=== PATIENT | male | born 1935 | race African-American/Black ===

== ENCOUNTER 2018-07-12 22:42 | Emergency (ER) | payer BC, MEDICARE ==
[~2018-07-12] VITALS: Ht 177.8 cm; Wt 86.0 kg
[~2018-07-12 22:42] MED LIST: AMLO10TA80 PO; ASPI-1159 PO; BRIM10DR2 TOP; KETO5DRO37 LEFTEYE; LEVO50TA8 PO; LOSA100T14 PO; PREDG05 OP
[2018-07-13] MEDS ORDERED: ONDANSETRON HCL 4MG/2ML INJ IV STA (00:06)
[2018-07-13] MEDS ORDERED: MORPHINE SULFATE 4 MG/ML CPJ (NOT FOR IM USE) IV STA (00:06)
[2018-07-13] MEDS ORDERED: ENALAPRIL 2.5MG/2ML VIAL 2ML IV ONE (00:15)
[2018-07-13 00:31] LABS: BASOPHILS % 1.1 % (0.0-2.0); EOSINOPHILS % 3.2 % (0.0-5.0); HEMATOCRIT. 29.9 % (42.0-52.0); HEMOGLOBIN. 9.8 g/dL (14.0-18.0); LYMPHOCYTES % 22.1 % (20.0-50.0); MEAN CORPUSCULAR HEMOGLOBIN 32.2 pg (28.0-32.0); MEAN CORPUSCULAR VOLUME 98.4 fL (80.0-94.0); MEAN PLATELET VOLUME 9.7 fl (7.4-10.4); MONOCYTES % 12.6 % (2.0-8.0); PLATELET 133 x1000/uL (130-400); RED BLOOD CELL COUNT 3.04 mill/uL (4.7-6.1); RED CELL DISTRIBUTION WIDTH 14.4 % (11.6-14.6)
[2018-07-13 00:39] LABS: CHLORIDE 112 mEq/L (98-107)
[2018-07-13] MEDS ORDERED: CLONIDINE 0.2MG TABLET PO ONE (03:15)
[2018-07-13] MEDS ORDERED: HYDROCODONE/ACETAMINOPHEN 5/325MG TABLET PO ONE (04:45)
[2018-07-13 05:02] VITALS: BP 153/86
== END 2018-07-13 05:04 | disposition home or self-care (01) ==
LOC: ER 22:42
DX: I16.0 Hypertensive urgency (principal); I10 Essential (primary) hypertension; E11.9 Type 2 diabetes mellitus without complications; R51 Headache; R42 Dizziness and giddiness; R06.02 Shortness of breath; Z90.49 Acquired absence of other specified parts of digestive tract; Z79.82 Long term (current) use of aspirin; Z79.899 Other long term (current) drug therapy
CPT/HCPCS: 36415; 70450; 71045; 80053; 82962; 83880; 84484; 85025; 93005; 96374; 96375; 99291; J2270; J2405; J3490

== ENCOUNTER 2018-07-13 10:39 | Inpatient (IN) | payer MEDICARE, OTHER ==
[~2018-07-13] VITALS: Ht 188 cm; Wt 102.1 kg
[2018-07-13] MEDS ORDERED: TRAMADOL 50MG TABLET PO ONE (11:00)
[2018-07-13] MEDS ORDERED: KETOROLAC 15MG/ML VIAL IV ONE (11:00)
[2018-07-13 11:51] LABS: HEMATOCRIT. 31.1 % (42.0-52.0); HEMOGLOBIN. 10.3 g/dL (14.0-18.0); MEAN CORPUSCULAR HEMOGLOBIN 32.7 pg (28.0-32.0); MEAN CORPUSCULAR VOLUME 98.7 fL (80.0-94.0); MEAN PLATELET VOLUME 9.3 fl (7.4-10.4); PLATELET 110 x1000/uL (130-400); RED BLOOD CELL COUNT 3.15 mill/uL (4.7-6.1); RED CELL DISTRIBUTION WIDTH 14.5 % (11.6-14.6)
[2018-07-13] MEDS ORDERED: MIDAZOLAM HCL 2 MG/2 ML VIAL IV ONE (12:00)
[2018-07-13] MEDS ORDERED: LIDOCAINE HCL/PF 1% 10 MG/ML 5ML VIAL ONE (12:37)
[2018-07-13 13:16] LABS: NUCLEATED RED BLOOD CELLS 1 /100 WBC
[2018-07-13 13:18] LABS: PLATELET ESTIMATE SLIGHTLY DECREASED
[2018-07-13] MEDS ORDERED: MORPHINE SULFATE 4 MG/ML CPJ (NOT FOR IM USE) IV ONE (15:00)
[2018-07-13] MEDS ORDERED: PANTOPRAZOLE SODIUM 40 MG/VIAL IV ONE (15:15)
[2018-07-13 16:20] VITALS: BP 127/81
[2018-07-13 16:57] LABS: GLUCOSE CSF 112 mg/dL (41-75)
[2018-07-13] MEDS ORDERED: AMPICILLIN 2000MG in SODIUM CHLORIDE 0.9% 100ML IV SCH (17:30)
[2018-07-13 18:00] VITALS: BP 95/58
[2018-07-13] MEDS ORDERED: CEFTRIAXONE 2 G in DEXT 5% WATER 100 ML IV SCH (18:00)
[2018-07-13] MEDS ORDERED: VANCOMYCIN 1500MG in DEXTROSE 5% WATER 250ML IV NR (19:00)
[2018-07-13] MEDS ORDERED: DEXTROSE 50% WATER 50ML SYRINGE IV PRN (19:15)
[2018-07-13] MEDS: SODIUM CHLORIDE 0.45% 1,000 ML IV SCH (19:47)
[2018-07-13 20:00] VITALS: BP 92/58
[2018-07-13] MEDS: INSULIN LISPRO 100 UNITS/ML SUBCUT SCH (21:00)
[2018-07-13] MEDS: BLOOD SUGAR DIAGNOSTIC STRIP TEST SCH (21:43)
[2018-07-13 22:00] VITALS: BP 98/57
[2018-07-13] MEDS: OSELTAMIVIR 30MG CAPSULE PO SCH (23:22)
[2018-07-14] VITALS (10 sets, daily range): BP systolic 88–123; BP diastolic 54–76
[2018-07-14] MEDS: ACETAMINOPHEN 325MG TABLET PO PRN ×2 (02:46→08:15)
[2018-07-14 03:45] LABS: CLARITY URINE CLOUDY (CLEAR); COLOR URINE YELLOW (YELLOW); KETONES URINE NEGATIVE (NEGATIVE); LEUKOCYTE ESTERASE URINE NEGATIVE (NEGATIVE); NITRITE URINE POSITIVE (NEGATIVE); OCCULT BLOOD URINE 1+ (NEGATIVE); PROTEIN URINE 3+ (NEGATIVE); SPECIFIC GRAVITY URINE 1.018 (1.005-1.030); UROBILINOGEN URINE 0.2 E.U./dL (0.2-1.0)
[2018-07-14] MEDS: SODIUM CHLORIDE 0.45% 1,000 ML IV SCH ×2 (05:09→19:55)
[2018-07-14 06:35] LABS: HEMATOCRIT. 26.3 % (42.0-52.0); HEMOGLOBIN. 8.7 g/dL (14.0-18.0); MEAN CORPUSCULAR VOLUME 99.4 fL (80.0-94.0); MEAN PLATELET VOLUME 10.8 fl (7.4-10.4); PLATELET 85 x1000/uL (130-400); RED BLOOD CELL COUNT 2.65 mill/uL (4.7-6.1)
[2018-07-14] MEDS: INSULIN LISPRO 100 UNITS/ML SUBCUT SCH ×4 (08:00→21:00)
[2018-07-14] MEDS: BLOOD SUGAR DIAGNOSTIC STRIP TEST SCH ×4 (08:03→21:13)
[2018-07-14] MEDS: OSELTAMIVIR 30MG CAPSULE PO SCH ×2 (08:13→21:13)
[2018-07-14] MEDS ORDERED: HYDROCODONE/ACETAMINOPHEN 5/325MG TABLET PO PRN (10:00)
[2018-07-14] MEDS ORDERED: SODIUM POLYSTYRENE SULFONATE 15 G/60 ML BOT PO SCH (10:15)
[2018-07-14] MEDS ORDERED: PIPERACILLIN/TAZOBACTAM 2.25 G in DEXTROSE 5% WATER 50 ML IV SCH (15:00)
[2018-07-14] MEDS: PIPERACILLIN/TAZ 2.25G PREMIX 50 ML IV SCH ×2 (15:43→21:13)
[2018-07-14 15:49] LABS: INR 1.2; PROTHROMBIN TIME 12.2 sec (9.1-11.1)
[2018-07-14] MEDS: CYCLOBENZAPRINE 10MG TABLET PO SCH (17:28)
[2018-07-14] MEDS ORDERED: SODIUM POLYSTYRENE SULFONATE 15 G/60 ML BOT PO NR (18:30)
[2018-07-14 19:13] LABS: PLATELET ESTIMATE DECREASED
[2018-07-14] MEDS ORDERED: VANCOMYCIN 1 G PREMIX 200 ML IV SCH (20:00)
[2018-07-14] MEDS: TRAMADOL 50MG TABLET PO PRN (23:02)
[2018-07-15] VITALS (16 sets, daily range): BP systolic 87–138; BP diastolic 37–87
[2018-07-15] MEDS: MORPHINE SULFATE 4 MG/ML CPJ (NOT FOR IM USE) IV PRN ×3 (00:18→22:47)
[2018-07-15] MEDS: SODIUM CHLORIDE 0.45% 1,000 ML IV SCH ×3 (00:21→21:08)
[2018-07-15] MEDS: PIPERACILLIN/TAZ 2.25G PREMIX 50 ML IV SCH ×2 (05:25→14:11)
[2018-07-15 07:20] LABS: HEMATOCRIT. 25.8 % (42.0-52.0); HEMOGLOBIN. 8.6 g/dL (14.0-18.0); MEAN CORPUSCULAR HEMOGLOBIN 32.7 pg (28.0-32.0); MEAN CORPUSCULAR VOLUME 98.2 fL (80.0-94.0); MEAN PLATELET VOLUME 11.1 fl (7.4-10.4); PLATELET 73 x1000/uL (130-400); RED BLOOD CELL COUNT 2.62 mill/uL (4.7-6.1); RED CELL DISTRIBUTION WIDTH 14.8 % (11.6-14.6)
[2018-07-15] MEDS ORDERED: LIDOCAINE HCL 1% 20ML VIAL (Pyxis) INJ ONE (07:36)
[2018-07-15] MEDS: BLOOD SUGAR DIAGNOSTIC STRIP TEST SCH ×4 (07:47→21:08)
[2018-07-15] MEDS: INSULIN LISPRO 100 UNITS/ML SUBCUT SCH ×4 (07:49→21:00)
[2018-07-15] MEDS: CYCLOBENZAPRINE 10MG TABLET PO SCH ×2 (10:08→17:04)
[2018-07-15] MEDS: OSELTAMIVIR 30MG CAPSULE PO SCH ×2 (10:08→21:08)
[2018-07-15 12:14] LABS: PLATELET ESTIMATE DECREASED
[2018-07-15] MEDS: ENOXAPARIN 30MG/0.3ML SYR SUBCUT SCH (15:51)
[2018-07-15] MEDS: FOLIC ACID/VITAMIN B COMP W-C TABLET PO SCH (15:52)
[2018-07-15] MEDS ORDERED: DIATR MEGLU/DIATRIZOATE SOLN 30ML PO SCH (16:30)
[2018-07-15] MEDS ORDERED: SODIUM CHLORIDE 0.9% 250 ML IV ONE (17:00)
[2018-07-15] MEDS: CEFTRIAXONE 1 G PREMIX 50 ML IV SCH (18:55)
[2018-07-16] VITALS (13 sets, daily range): BP systolic 110–153; BP diastolic 56–117
[2018-07-16 07:06] LABS: HEMATOCRIT. 26.1 % (42.0-52.0); MEAN CORPUSCULAR HEMOGLOBIN 33.2 pg (28.0-32.0); MEAN CORPUSCULAR VOLUME 96.2 fL (80.0-94.0); MEAN PLATELET VOLUME 10.7 fl (7.4-10.4); PLATELET 84 x1000/uL (130-400); RED BLOOD CELL COUNT 2.72 mill/uL (4.7-6.1); RED CELL DISTRIBUTION WIDTH 14.4 % (11.6-14.6)
[2018-07-16] MEDS: INSULIN LISPRO 100 UNITS/ML SUBCUT SCH ×4 (08:00→21:00)
[2018-07-16 08:06] LABS: PHOSPHORUS 4.9 mg/dL (2.5-4.9)
[2018-07-16] MEDS: BLOOD SUGAR DIAGNOSTIC STRIP TEST SCH ×4 (08:21→21:21)
[2018-07-16] MEDS: FOLIC ACID/VITAMIN B COMP W-C TABLET PO SCH (08:36)
[2018-07-16] MEDS: CYCLOBENZAPRINE 10MG TABLET PO SCH ×2 (08:36→16:33)
[2018-07-16] MEDS: CEFTRIAXONE 1 G PREMIX 50 ML IV SCH (08:36)
[2018-07-16] MEDS: OSELTAMIVIR 30MG CAPSULE PO SCH (08:37)
[2018-07-16 09:11] LABS: PLATELET ESTIMATE DECREASED
[2018-07-16] MEDS ORDERED: VERAPAMIL HCL 2.5 MG/1 ML 2ML VIAL IV NR (09:30)
[2018-07-16] MEDS: MORPHINE SULFATE 4 MG/ML CPJ (NOT FOR IM USE) IV PRN ×3 (09:32→22:22)
[2018-07-16] MEDS ORDERED: VERAPAMIL HCL 2.5 MG/1 ML 2ML VIAL IV PRN (09:45)
[2018-07-16] MEDS: DILTIAZEM HCL 60MG TABLET PO SCH ×3 (09:51→20:00)
[2018-07-16 10:11] LABS: BG BASE EXCESS -5.9 mmol/L (-2.0-2.0); BG CARBOXYHEMOGLOBIN 0.6 % (0.5-1.5); BG DEOXYHEMOGLOBIN 7.4 % (0.0-5.0); BG HCO3 ACT 18.2 mmol/L (22.0-26.0); BG METHEMOGLOBIN 0.2 % (0.0-1.5); BG OXYGEN SATURATION 92.5 % (92.0-98.5); BG OXYHEMOGLOBIN 91.8 % (94.0-97.0); BG PCO2 31.2 mmHg (35.0-45.0); BG PH 7.384 (7.350-7.450); BG PO2 78.6 mmHg (75.0-100.0); BG SAMPLE SITE RIGHT RADIAL; BG TOTAL HEMOGLOBIN 10.6 g/dL (12.0-18.0); BG VENT MODE NASAL CANNULA
[2018-07-16] MEDS ORDERED: DIGOXIN 500MCG/2ML AMP IV NR (10:45)
[2018-07-16 11:12] LABS: HEPATITIS B SURFACE ANTIGEN NEGATIVE
[2018-07-16] MEDS ORDERED: HEPARIN SODIUM 1,000 UNIT/1ML VIAL IV NR (13:00)
[2018-07-16] MEDS: ENOXAPARIN 30MG/0.3ML SYR SUBCUT SCH (16:21)
[2018-07-16] MEDS: METRONIDAZOLE 250MG TABLET PO SCH (18:32)
[2018-07-16] MEDS: SODIUM CHLORIDE 0.45% 1,000 ML IV SCH (18:39)
[2018-07-16] MEDS: TRAMADOL 50MG TABLET PO PRN (20:05)
[2018-07-16] MEDS ORDERED: LORAZEPAM 1MG TABLET PO SCH (20:30)
[2018-07-16] MEDS: EPOETIN ALFA 10000UNITS/ML VIAL SUBCUT SCH (21:21)
[2018-07-17] VITALS (11 sets, daily range): BP systolic 128–154; BP diastolic 55–92
[2018-07-17] MEDS: METRONIDAZOLE 250MG TABLET PO SCH ×4 (05:38→18:56)
[2018-07-17] MEDS: DILTIAZEM HCL 60MG TABLET PO SCH ×4 (05:40→17:39)
[2018-07-17 06:13] LABS: BASOPHILS % 0.6 % (0.0-2.0); EOSINOPHILS % 1.9 % (0.0-5.0); HEMATOCRIT. 26.8 % (42.0-52.0); HEMOGLOBIN. 9.1 g/dL (14.0-18.0); LYMPHOCYTES % 10.7 % (20.0-50.0); MEAN CORPUSCULAR HEMOGLOBIN 33.1 pg (28.0-32.0); MEAN CORPUSCULAR VOLUME 96.9 fL (80.0-94.0); MEAN PLATELET VOLUME 11.2 fl (7.4-10.4); MONOCYTES % 7.3 % (2.0-8.0); NEUTROPHILS % 79.5 % (40.0-76.0); PLATELET 74 x1000/uL (130-400); RED BLOOD CELL COUNT 2.76 mill/uL (4.7-6.1); RED CELL DISTRIBUTION WIDTH 14.3 % (11.6-14.6)
[2018-07-17] MEDS ORDERED: DIATR MEGLU/DIATRIZOATE SOLN 30ML PO NR (06:15)
[2018-07-17] MEDS: INSULIN LISPRO 100 UNITS/ML SUBCUT SCH ×4 (08:00→21:00)
[2018-07-17] MEDS: CYCLOBENZAPRINE 10MG TABLET PO SCH ×2 (08:12→16:58)
[2018-07-17] MEDS: CEFTRIAXONE 1 G PREMIX 50 ML IV SCH (08:12)
[2018-07-17] MEDS: FOLIC ACID/VITAMIN B COMP W-C TABLET PO SCH (08:12)
[2018-07-17] MEDS: BLOOD SUGAR DIAGNOSTIC STRIP TEST SCH ×4 (08:13→21:00)
[2018-07-17] MEDS: MORPHINE SULFATE 4 MG/ML CPJ (NOT FOR IM USE) IV PRN ×3 (08:43→22:33)
[2018-07-17] MEDS ORDERED: FOLIC ACID/VITAMIN B COMP W-C TABLET PO SCH (09:00)
[2018-07-17] MEDS: TRAMADOL 50MG TABLET PO PRN (09:12)
[2018-07-17] MEDS: LORAZEPAM 1MG TABLET PO PRN (09:29)
[2018-07-17] MEDS: SODIUM CHLORIDE 0.45% 1,000 ML IV SCH (10:16)
[2018-07-17] MEDS: ENOXAPARIN 30MG/0.3ML SYR SUBCUT SCH (14:51)
[2018-07-17] MEDS: ACETAMINOPHEN 325MG TABLET PO PRN (22:33)
[2018-07-18] VITALS (12 sets, daily range): BP systolic 132–168; BP diastolic 71–88
[2018-07-18] MEDS: TRAMADOL 50MG TABLET PO PRN ×4 (00:17→23:58)
[2018-07-18] MEDS: METRONIDAZOLE 250MG TABLET PO SCH ×5 (00:17→23:59)
[2018-07-18] MEDS: DILTIAZEM HCL 60MG TABLET PO SCH ×4 (00:20→18:12)
[2018-07-18] MEDS: SODIUM CHLORIDE 0.45% 1,000 ML IV SCH (02:56)
[2018-07-18 06:37] LABS: BASOPHILS % 0.3 % (0.0-2.0); EOSINOPHILS % 2.6 % (0.0-5.0); HEMATOCRIT. 23.3 % (42.0-52.0); LYMPHOCYTES % 10.5 % (20.0-50.0); MEAN CORPUSCULAR HEMOGLOBIN 33.3 pg (28.0-32.0); MEAN CORPUSCULAR VOLUME 96.9 fL (80.0-94.0); MEAN PLATELET VOLUME 10.7 fl (7.4-10.4); MONOCYTES % 14.9 % (2.0-8.0); NEUTROPHILS % 71.7 % (40.0-76.0); PLATELET 66 x1000/uL (130-400); RED CELL DISTRIBUTION WIDTH 13.8 % (11.6-14.6)
[2018-07-18] MEDS: BLOOD SUGAR DIAGNOSTIC STRIP TEST SCH ×4 (07:52→21:00)
[2018-07-18] MEDS: INSULIN LISPRO 100 UNITS/ML SUBCUT SCH ×4 (07:53→21:00)
[2018-07-18] MEDS: CYCLOBENZAPRINE 10MG TABLET PO SCH ×2 (08:51→18:08)
[2018-07-18] MEDS: FOLIC ACID/VITAMIN B COMP W-C TABLET PO SCH (08:51)
[2018-07-18] MEDS: CEFTRIAXONE 1 G PREMIX 50 ML IV SCH (08:54)
[2018-07-18] MEDS: LORAZEPAM 1MG TABLET PO PRN (15:18)
[2018-07-18] MEDS: ENOXAPARIN 30MG/0.3ML SYR SUBCUT SCH (15:25)
[2018-07-18] MEDS: MORPHINE SULFATE 4 MG/ML CPJ (NOT FOR IM USE) IV PRN (16:39)
[2018-07-18] MEDS ORDERED: MORPHINE SULFATE 4 MG/ML CPJ (NOT FOR IM USE) IV ONE (16:42)
[2018-07-18] MEDS: BENZONATATE 100MG CAPSULE PO SCH (22:06)
[2018-07-18] MEDS: EPOETIN ALFA 10000UNITS/ML VIAL SUBCUT SCH (22:07)
[2018-07-19] VITALS (14 sets, daily range): BP systolic 126–169; BP diastolic 59–92
[2018-07-19] MEDS: IPRATROPIUM/ALBUTEROL 0.5-3(2.5)MG/3ML NEB HHN SCH ×7 (00:31→23:53)
[2018-07-19] MEDS: SODIUM CHLORIDE 0.45% 1,000 ML IV SCH (05:04)
[2018-07-19] MEDS: METRONIDAZOLE 250MG TABLET PO SCH ×4 (05:20→23:34)
[2018-07-19] MEDS: DILTIAZEM HCL 60MG TABLET PO SCH ×5 (05:21→23:34)
[2018-07-19] MEDS: BENZONATATE 100MG CAPSULE PO SCH ×3 (06:47→20:20)
[2018-07-19 07:46] LABS: BASOPHILS % 0.6 % (0.0-2.0); HEMATOCRIT. 23.5 % (42.0-52.0); MEAN CORPUSCULAR HEMOGLOBIN 32.8 pg (28.0-32.0); MEAN CORPUSCULAR VOLUME 96.6 fL (80.0-94.0); MEAN PLATELET VOLUME 10.5 fl (7.4-10.4); MONOCYTES % 10.6 % (2.0-8.0); NEUTROPHILS % 74.8 % (40.0-76.0); PLATELET 62 x1000/uL (130-400); RED BLOOD CELL COUNT 2.44 mill/uL (4.7-6.1); RED CELL DISTRIBUTION WIDTH 13.8 % (11.6-14.6)
[2018-07-19] MEDS: BLOOD SUGAR DIAGNOSTIC STRIP TEST SCH ×4 (07:51→21:00)
[2018-07-19] MEDS: MORPHINE SULFATE 4 MG/ML CPJ (NOT FOR IM USE) IV PRN (07:56)
[2018-07-19] MEDS: INSULIN LISPRO 100 UNITS/ML SUBCUT SCH ×4 (07:56→20:44)
[2018-07-19] MEDS: CEFTRIAXONE 1 G PREMIX 50 ML IV SCH (10:01)
[2018-07-19] MEDS: FOLIC ACID/VITAMIN B COMP W-C TABLET PO SCH (10:01)
[2018-07-19] MEDS: CYCLOBENZAPRINE 10MG TABLET PO SCH ×2 (10:01→16:22)
[2018-07-19] MEDS ORDERED: POTASSIUM CHLORIDE 20MEQ TABLET SR PO NR (10:45)
[2018-07-19] MEDS: ENOXAPARIN 30MG/0.3ML SYR SUBCUT SCH (15:10)
[2018-07-19] MEDS: LORAZEPAM 1MG TABLET PO PRN (20:20)
[2018-07-19] MEDS: TRAMADOL 50MG TABLET PO PRN (20:21)
[2018-07-20] VITALS (12 sets, daily range): BP systolic 127–188; BP diastolic 71–142
[2018-07-20] MEDS: TRAMADOL 50MG TABLET PO PRN ×3 (00:09→12:53)
[2018-07-20] MEDS: IPRATROPIUM/ALBUTEROL 0.5-3(2.5)MG/3ML NEB HHN SCH ×5 (04:20→21:19)
[2018-07-20] MEDS: BENZONATATE 100MG CAPSULE PO SCH ×3 (05:25→20:23)
[2018-07-20] MEDS: METRONIDAZOLE 250MG TABLET PO SCH ×4 (05:25→23:52)
[2018-07-20] MEDS: DILTIAZEM HCL 60MG TABLET PO SCH (05:25)
[2018-07-20] MEDS: BLOOD SUGAR DIAGNOSTIC STRIP TEST SCH ×4 (06:21→20:27)
[2018-07-20 06:42] LABS: HEMATOCRIT. 25.5 % (42.0-52.0); HEMOGLOBIN. 8.5 g/dL (14.0-18.0); MEAN CORPUSCULAR HEMOGLOBIN 32.2 pg (28.0-32.0); MEAN CORPUSCULAR VOLUME 97.3 fL (80.0-94.0); PLATELET 71 x1000/uL (130-400); RED BLOOD CELL COUNT 2.62 mill/uL (4.7-6.1)
[2018-07-20] MEDS: CYCLOBENZAPRINE 10MG TABLET PO SCH ×2 (08:57→16:16)
[2018-07-20] MEDS: CEFTRIAXONE 1 G PREMIX 50 ML IV SCH (08:58)
[2018-07-20] MEDS: FOLIC ACID/VITAMIN B COMP W-C TABLET PO SCH (08:58)
[2018-07-20] MEDS: INSULIN LISPRO 100 UNITS/ML SUBCUT SCH ×4 (08:59→20:43)
[2018-07-20 10:46] LABS: PLATELET ESTIMATE DECREASED
[2018-07-20] MEDS: DILTIAZEM HCL 90MG TABLET PO SCH ×3 (11:19→23:52)
[2018-07-20] MEDS ORDERED: CLONIDINE 0.1MG TABLET PO PRN (17:30)
[2018-07-21] VITALS (18 sets, daily range): BP systolic 131–167; BP diastolic 62–94
[2018-07-21] MEDS: IPRATROPIUM/ALBUTEROL 0.5-3(2.5)MG/3ML NEB HHN SCH ×6 (00:55→20:58)
[2018-07-21] MEDS: BENZONATATE 100MG CAPSULE PO SCH ×3 (04:57→20:50)
[2018-07-21] MEDS: DILTIAZEM HCL 90MG TABLET PO SCH ×4 (05:30→23:18)
[2018-07-21] MEDS: METRONIDAZOLE 250MG TABLET PO SCH ×4 (05:31→23:19)
[2018-07-21] MEDS: BLOOD SUGAR DIAGNOSTIC STRIP TEST SCH ×4 (08:27→20:51)
[2018-07-21] MEDS: INSULIN LISPRO 100 UNITS/ML SUBCUT SCH ×4 (08:35→20:51)
[2018-07-21] MEDS: CEFTRIAXONE 1 G PREMIX 50 ML IV SCH (08:36)
[2018-07-21] MEDS: FOLIC ACID/VITAMIN B COMP W-C TABLET PO SCH (09:00)
[2018-07-21] MEDS: CYCLOBENZAPRINE 10MG TABLET PO SCH ×2 (09:00→17:02)
[2018-07-21] MEDS ORDERED: FENTANYL CITRATE/PF 50MCG/ML 2ML VIAL ONE (10:13)
[2018-07-21] MEDS ORDERED: TETRACAINE/BENZOCAINE/BUTAMBEN 20 GM SPRAY MM ONE (10:14)
[2018-07-21] MEDS ORDERED: MIDAZOLAM HCL 5 MG/5 ML VIAL ONE (10:14)
[2018-07-21] MEDS ORDERED: LIDOCAINE HCL 2% JELLY 5ML ONE (10:14)
[2018-07-21] MEDS ORDERED: EPOETIN ALFA 10000UNITS/ML VIAL SUBCUT SCH (21:00)
[2018-07-21] MEDS: ACETAMINOPHEN 325MG TABLET PO PRN (23:19)
[2018-07-22] VITALS (12 sets, daily range): BP systolic 130–171; BP diastolic 77–110
[2018-07-22] MEDS: TRAMADOL 50MG TABLET PO PRN ×2 (00:48→09:22)
[2018-07-22] MEDS: IPRATROPIUM/ALBUTEROL 0.5-3(2.5)MG/3ML NEB HHN SCH ×6 (01:24→20:57)
[2018-07-22] MEDS: BENZONATATE 100MG CAPSULE PO SCH ×3 (05:26→20:58)
[2018-07-22] MEDS: METRONIDAZOLE 250MG TABLET PO SCH ×3 (05:27→17:37)
[2018-07-22] MEDS: DILTIAZEM HCL 90MG TABLET PO SCH ×3 (05:27→17:37)
[2018-07-22] MEDS: BLOOD SUGAR DIAGNOSTIC STRIP TEST SCH ×4 (07:48→20:58)
[2018-07-22] MEDS: INSULIN LISPRO 100 UNITS/ML SUBCUT SCH ×4 (08:49→21:03)
[2018-07-22] MEDS: CYCLOBENZAPRINE 10MG TABLET PO SCH ×2 (09:02→17:36)
[2018-07-22] MEDS: CEFTRIAXONE 1 G PREMIX 50 ML IV SCH (09:02)
[2018-07-22] MEDS: FOLIC ACID/VITAMIN B COMP W-C TABLET PO SCH (09:02)
[2018-07-22] MEDS: HYDROCODONE/ACETAMINOPHEN 5/325MG TABLET PO PRN (17:45)
[2018-07-22] MEDS: ATORVASTATIN CALCIUM 10MG TABLET PO SCH (20:58)
[2018-07-22] MEDS: HYDRALAZINE HCL 50MG TABLET PO SCH (20:58)
[2018-07-23] VITALS (11 sets, daily range): BP systolic 131–160; BP diastolic 65–88
[2018-07-23] MEDS: IPRATROPIUM/ALBUTEROL 0.5-3(2.5)MG/3ML NEB HHN SCH ×6 (00:33→20:36)
[2018-07-23] MEDS: DILTIAZEM HCL 90MG TABLET PO SCH ×4 (00:40→17:36)
[2018-07-23] MEDS: METRONIDAZOLE 250MG TABLET PO SCH ×4 (00:41→17:36)
[2018-07-23] MEDS: HYDROCODONE/ACETAMINOPHEN 5/325MG TABLET PO PRN ×3 (00:41→16:29)
[2018-07-23] MEDS: BENZONATATE 100MG CAPSULE PO SCH ×3 (05:27→20:48)
[2018-07-23] MEDS: BLOOD SUGAR DIAGNOSTIC STRIP TEST SCH ×4 (07:30→20:48)
[2018-07-23 08:28] LABS: HEMOGLOBIN. 8.6 g/dL (14.0-18.0); MEAN CORPUSCULAR VOLUME 96.5 fL (80.0-94.0); MEAN PLATELET VOLUME 10.2 fl (7.4-10.4); PLATELET 98 x1000/uL (130-400); RED CELL DISTRIBUTION WIDTH 14.4 % (11.6-14.6)
[2018-07-23] MEDS: CYCLOBENZAPRINE 10MG TABLET PO SCH ×2 (10:15→16:27)
[2018-07-23] MEDS: HYDRALAZINE HCL 50MG TABLET PO SCH ×2 (10:15→20:48)
[2018-07-23] MEDS ORDERED: POTASSIUM CHLORIDE 20MEQ TABLET SR PO NR (10:15)
[2018-07-23] MEDS: FOLIC ACID/VITAMIN B COMP W-C TABLET PO SCH (10:15)
[2018-07-23] MEDS: INSULIN LISPRO 100 UNITS/ML SUBCUT SCH ×4 (10:21→20:54)
[2018-07-23 11:53] LABS: NUCLEATED RED BLOOD CELLS 1 /100 WBC
[2018-07-23 11:54] LABS: PLATELET ESTIMATE DECREASED
[2018-07-23] MEDS ORDERED: CEFTRIAXONE 1 G PREMIX 50 ML IV SCH (15:30)
[2018-07-23] MEDS: APIXABAN 2.5 MG TABLET PO SCH (16:29)
[2018-07-23] MEDS: ATORVASTATIN CALCIUM 10MG TABLET PO SCH (20:48)
[2018-07-23] MEDS: TRAMADOL 50MG TABLET PO PRN (20:59)
[2018-07-24] VITALS (11 sets, daily range): BP systolic 131–158; BP diastolic 65–83
[2018-07-24] MEDS: IPRATROPIUM/ALBUTEROL 0.5-3(2.5)MG/3ML NEB HHN SCH ×7 (00:19→23:43)
[2018-07-24] MEDS: DILTIAZEM HCL 90MG TABLET PO SCH ×4 (00:48→18:36)
[2018-07-24] MEDS: HYDROCODONE/ACETAMINOPHEN 5/325MG TABLET PO PRN ×4 (00:48→21:45)
[2018-07-24] MEDS: METRONIDAZOLE 250MG TABLET PO SCH ×4 (00:48→18:36)
[2018-07-24 06:48] LABS: BASOPHILS % 0.3 % (0.0-2.0); EOSINOPHILS % 2.2 % (0.0-5.0); HEMATOCRIT. 25.8 % (42.0-52.0); HEMOGLOBIN. 8.8 g/dL (14.0-18.0); LYMPHOCYTES % 9.4 % (20.0-50.0); MEAN CORPUSCULAR HEMOGLOBIN 32.9 pg (28.0-32.0); MEAN CORPUSCULAR VOLUME 96.5 fL (80.0-94.0); MEAN PLATELET VOLUME 10.5 fl (7.4-10.4); MONOCYTES % 7.4 % (2.0-8.0); NEUTROPHILS % 80.7 % (40.0-76.0); PLATELET 97 x1000/uL (130-400); RED BLOOD CELL COUNT 2.67 mill/uL (4.7-6.1); RED CELL DISTRIBUTION WIDTH 14.2 % (11.6-14.6)
[2018-07-24] MEDS: BENZONATATE 100MG CAPSULE PO SCH ×3 (07:03→21:40)
[2018-07-24] MEDS: BLOOD SUGAR DIAGNOSTIC STRIP TEST SCH ×4 (07:33→21:00)
[2018-07-24] MEDS: FOLIC ACID/VITAMIN B COMP W-C TABLET PO SCH (09:12)
[2018-07-24] MEDS: APIXABAN 2.5 MG TABLET PO SCH ×2 (09:12→16:39)
[2018-07-24] MEDS: CYCLOBENZAPRINE 10MG TABLET PO SCH ×2 (09:12→16:40)
[2018-07-24] MEDS: HYDRALAZINE HCL 50MG TABLET PO SCH ×3 (09:13→21:45)
[2018-07-24] MEDS: INSULIN LISPRO 100 UNITS/ML SUBCUT SCH ×4 (09:14→22:05)
[2018-07-24] MEDS ORDERED: POTASSIUM CHLORIDE 20MEQ TABLET SR PO SCH (10:30)
[2018-07-24] MEDS: ACETAMINOPHEN 325MG TABLET PO PRN (13:36)
[2018-07-24] MEDS: ASPIRIN 81MG EC TABLET PO SCH (16:38)
[2018-07-24] MEDS: CEFTRIAXONE 1 G PREMIX 50 ML IV SCH (16:41)
[2018-07-24] MEDS: ATORVASTATIN CALCIUM 10MG TABLET PO SCH (21:40)
[2018-07-25] VITALS (11 sets, daily range): BP systolic 120–150; BP diastolic 71–107
[2018-07-25] MEDS: DILTIAZEM HCL 90MG TABLET PO SCH ×5 (00:16→23:01)
[2018-07-25] MEDS: METRONIDAZOLE 250MG TABLET PO SCH ×5 (00:16→23:01)
[2018-07-25] MEDS: IPRATROPIUM/ALBUTEROL 0.5-3(2.5)MG/3ML NEB HHN SCH ×5 (04:15→20:54)
[2018-07-25] MEDS: BENZONATATE 100MG CAPSULE PO SCH ×3 (05:40→21:01)
[2018-07-25] MEDS: HYDRALAZINE HCL 50MG TABLET PO SCH ×3 (05:40→21:02)
[2018-07-25] MEDS: HYDROCODONE/ACETAMINOPHEN 5/325MG TABLET PO PRN ×2 (06:25→22:59)
[2018-07-25 07:07] LABS: BASOPHILS % 0.3 % (0.0-2.0); EOSINOPHILS % 0.8 % (0.0-5.0); HEMOGLOBIN. 8.7 g/dL (14.0-18.0); LYMPHOCYTES % 10.1 % (20.0-50.0); MEAN CORPUSCULAR HEMOGLOBIN 32.4 pg (28.0-32.0); MEAN CORPUSCULAR VOLUME 97.1 fL (80.0-94.0); MEAN PLATELET VOLUME 10.9 fl (7.4-10.4); MONOCYTES % 7.7 % (2.0-8.0); NEUTROPHILS % 81.1 % (40.0-76.0); PLATELET 102 x1000/uL (130-400); RED BLOOD CELL COUNT 2.68 mill/uL (4.7-6.1); RED CELL DISTRIBUTION WIDTH 14.4 % (11.6-14.6)
[2018-07-25 07:51] LABS: BG BASE EXCESS -0.6 mmol/L (-2.0-2.0); BG CARBOXYHEMOGLOBIN 0.3 % (0.5-1.5); BG DEOXYHEMOGLOBIN 4.9 % (0.0-5.0); BG FRACTION INSPIRED OXYGEN 30; BG HCO3 ACT 21.9 mmol/L (22.0-26.0); BG METHEMOGLOBIN 0.2 % (0.0-1.5); BG OXYGEN SATURATION 95.1 % (92.0-98.5); BG OXYHEMOGLOBIN 94.6 % (94.0-97.0); BG PCO2 28.5 mmHg (35.0-45.0); BG PH 7.504 (7.350-7.450); BG PO2 82.2 mmHg (75.0-100.0); BG SAMPLE SITE RIGHT RADIAL; BG TOTAL HEMOGLOBIN 9.4 g/dL (12.0-18.0); BG VENT MODE NASAL CANNULA
[2018-07-25 08:02] LABS: PHOSPHORUS 2.6 mg/dL (2.5-4.9)
[2018-07-25] MEDS: BLOOD SUGAR DIAGNOSTIC STRIP TEST SCH ×4 (08:27→21:17)
[2018-07-25] MEDS: INSULIN LISPRO 100 UNITS/ML SUBCUT SCH ×4 (08:30→20:54)
[2018-07-25] MEDS: CYCLOBENZAPRINE 10MG TABLET PO SCH ×2 (10:16→17:36)
[2018-07-25] MEDS: ASPIRIN 81MG EC TABLET PO SCH (10:16)
[2018-07-25] MEDS: FOLIC ACID/VITAMIN B COMP W-C TABLET PO SCH (10:16)
[2018-07-25] MEDS: APIXABAN 2.5 MG TABLET PO SCH ×2 (10:16→17:36)
[2018-07-25] MEDS: ACETAMINOPHEN 325MG TABLET PO PRN (13:17)
[2018-07-25] MEDS: CEFTRIAXONE 1 G PREMIX 50 ML IV SCH (17:36)
[2018-07-25] MEDS: ATORVASTATIN CALCIUM 10MG TABLET PO SCH (21:01)
[2018-07-26] VITALS: BP 137/79
[2018-07-26] MEDS: ACETAMINOPHEN 325MG TABLET PO PRN ×2 (00:42→09:11)
[2018-07-26] MEDS: IPRATROPIUM/ALBUTEROL 0.5-3(2.5)MG/3ML NEB HHN SCH ×3 (00:45→09:10)
[2018-07-26 02:00] VITALS: BP 145/80
[2018-07-26 04:00] VITALS: BP 143/75
[2018-07-26] MEDS: HYDROCODONE/ACETAMINOPHEN 5/325MG TABLET PO PRN (05:19)
[2018-07-26] MEDS: METRONIDAZOLE 250MG TABLET PO SCH (05:19)
[2018-07-26] MEDS: BENZONATATE 100MG CAPSULE PO SCH (05:20)
[2018-07-26] MEDS: HYDRALAZINE HCL 50MG TABLET PO SCH (05:20)
[2018-07-26] MEDS: DILTIAZEM HCL 90MG TABLET PO SCH (05:20)
[2018-07-26 06:00] VITALS: BP 151/83
[2018-07-26 07:08] LABS: BASOPHILS % 1.2 % (0.0-2.0); EOSINOPHILS % 1.5 % (0.0-5.0); HEMATOCRIT. 24.5 % (42.0-52.0); HEMOGLOBIN. 8.2 g/dL (14.0-18.0); MEAN CORPUSCULAR HEMOGLOBIN 32.6 pg (28.0-32.0); MEAN CORPUSCULAR VOLUME 96.6 fL (80.0-94.0); MEAN PLATELET VOLUME 11.1 fl (7.4-10.4); MONOCYTES % 10.8 % (2.0-8.0); NEUTROPHILS % 76.5 % (40.0-76.0); PLATELET 107 x1000/uL (130-400); RED BLOOD CELL COUNT 2.53 mill/uL (4.7-6.1); RED CELL DISTRIBUTION WIDTH 14.4 % (11.6-14.6)
[2018-07-26 07:20] LABS: PHOSPHORUS 3.1 mg/dL (2.5-4.9)
[2018-07-26] MEDS: BLOOD SUGAR DIAGNOSTIC STRIP TEST SCH (07:31)
[2018-07-26] MEDS: INSULIN LISPRO 100 UNITS/ML SUBCUT SCH (07:32)
[2018-07-26 08:00] VITALS: BP 144/80
[2018-07-26] MEDS: APIXABAN 2.5 MG TABLET PO SCH (09:06)
[2018-07-26] MEDS: FOLIC ACID/VITAMIN B COMP W-C TABLET PO SCH (09:06)
[2018-07-26] MEDS: CYCLOBENZAPRINE 10MG TABLET PO SCH (09:10)
[2018-07-26] MEDS: ASPIRIN 81MG EC TABLET PO SCH (09:11)
[2018-07-26 10:03] VITALS: BP 133/70
== END 2018-07-26 10:45 | DRG 871 ==
LOC: ER 10:42 → 5EST 12:49 → EDBEDREQSVC 12:57 → EDBEDREQ 12:57 → ENRESERV 13:46 → EDBEDREQ 15:06 → 5EST 07-16 11:43
PROVIDERS: ADMIT Internal Medicine; ATTEND Internal Medicine
PROC: 009U3ZX Drainage of Spinal Canal, Percutaneous Approach, Diagnostic (ICD-10-PCS; principal; 2018-07-13)
PROC: 02HV33Z Insertion of Infusion Device into Superior Vena Cava, Percutaneous Approach (ICD-10-PCS; 2018-07-15)
PROC: B548ZZA Ultrasonography of Superior Vena Cava, Guidance (ICD-10-PCS; 2018-07-15)
PROC: 5A1D70Z Performance of Urinary Filtration, Intermittent, Less than 6 Hours Per Day (ICD-10-PCS; 2018-07-15)
PROC: 5A1D70Z Performance of Urinary Filtration, Intermittent, Less than 6 Hours Per Day (ICD-10-PCS; 2018-07-15)
PROC: 5A1D70Z Performance of Urinary Filtration, Intermittent, Less than 6 Hours Per Day (ICD-10-PCS; 2018-07-18)
PROC: 5A1D70Z Performance of Urinary Filtration, Intermittent, Less than 6 Hours Per Day (ICD-10-PCS; 2018-07-21)
DX: A41.59 Other Gram-negative sepsis (principal); N17.0 Acute kidney failure with tubular necrosis; I63.9 Cerebral infarction, unspecified; D61.818 Other pancytopenia; E46 Unspecified protein-calorie malnutrition; G93.40 Encephalopathy, unspecified; I25.3 Aneurysm of heart; I47.1 Supraventricular tachycardia; I48.4 Atypical atrial flutter; K56.7 Ileus, unspecified; R47.01 Aphasia; J98.11 Atelectasis; I48.91 Unspecified atrial fibrillation; E11.22 Type 2 diabetes mellitus with diabetic chronic kidney disease; I12.9 Hypertensive chronic kidney disease with stage 1 through stage 4 chronic kidney disease, or unspecified chronic kidney disease; E87.5 Hyperkalemia; E87.6 Hypokalemia; D63.8 Anemia in other chronic diseases classified elsewhere; D53.9 Nutritional anemia, unspecified; E66.09 Other obesity due to excess calories; J01.90 Acute sinusitis, unspecified; M10.9 Gout, unspecified; R26.9 Unspecified abnormalities of gait and mobility; E03.9 Hypothyroidism, unspecified; E78.5 Hyperlipidemia, unspecified; E86.0 Dehydration; H40.9 Unspecified glaucoma; I25.10 Atherosclerotic heart disease of native coronary artery without angina pectoris; I34.0 Nonrheumatic mitral (valve) insufficiency; I48.0 Paroxysmal atrial fibrillation; I87.2 Venous insufficiency (chronic) (peripheral); K52.9 Noninfective gastroenteritis and colitis, unspecified; J10.1 Influenza due to other identified influenza virus with other respiratory manifestations; B96.4 Proteus (mirabilis) (morganii) as the cause of diseases classified elsewhere; N18.3 Chronic kidney disease, stage 3 (moderate); J84.10 Pulmonary fibrosis, unspecified; K21.9 Gastro-esophageal reflux disease without esophagitis; Z68.28 Body mass index [BMI] 28.0-28.9, adult; Z79.01 Long term (current) use of anticoagulants; Z82.49 Family history of ischemic heart disease and other diseases of the circulatory system; Z83.3 Family history of diabetes mellitus; Z90.49 Acquired absence of other specified parts of digestive tract; Z99.2 Dependence on renal dialysis; Z79.82 Long term (current) use of aspirin; Z79.899 Other long term (current) drug therapy; Z79.2 Long term (current) use of antibiotics
CPT/HCPCS: 36415; 36569; 36600; 70544; 70553; 71045; 71250; 74018; 74176; 76770; 76937; 80048; 80061; 80076; 82270; 82375; 82438; 82570; 82728; 82805; 82945; 82962; 83010; 83540; 83550; 83615; 83735; 83935; 84100; 84132; 84157; 84300; 84443; 85651; 86803; 87070; 87077; 87186; 87340; 87804; 93005; 93306; 93312; 93321; 93970; 94640; 96365; 97116; 97162; 97166; 97530; 97535; 99285; C1752; C1769; J0290; J0696; J0885; J1160; J1644; J1650; J1815; J1885; J2250; J2270; J2543; J3010; J3370; J3490; J7030; J7040; J7050; J7060; J7620; Q9963

== ENCOUNTER 2019-09-05 11:22 | Inpatient (IN) | payer OTHER ==
[~2019-09-05] VITALS: Ht 182.9 cm; Wt 106.1 kg
[~2019-09-05 11:22] MED LIST changes: -ASPI-1159 PO; +ASPI-1393 PO; -LOSA100T14 PO; +LOSA100T32 PO
[2019-09-05 14:36] LABS: BASOPHILS % 0.7 % (0.0-2.0); HEMATOCRIT. 26.3 % (42.0-52.0); HEMOGLOBIN. 8.5 g/dL (14.0-18.0); LYMPHOCYTES % 22.3 % (20.0-50.0); MEAN CORPUSCULAR HEMOGLOBIN 32.4 pg (28.0-32.0); MEAN PLATELET VOLUME 8.3 fl (7.4-10.4); MONOCYTES % 10.7 % (2.0-8.0); NEUTROPHILS % 64.3 % (40.0-76.0); PLATELET 127 x1000/uL (130-400); RED BLOOD CELL COUNT 2.63 mill/uL (4.7-6.1); RED CELL DISTRIBUTION WIDTH 16.7 % (11.6-14.6)
[2019-09-05 14:41] LABS: CHLORIDE 114 mEq/L (98-107)
[2019-09-05] MEDS ORDERED: FUROSEMIDE 40MG/4ML VIAL IVP ONE (14:45)
[2019-09-05 20:00] VITALS: BP 147/92
[2019-09-05] MEDS ORDERED: APIX2.5T MT (20:55)
[2019-09-05] MEDS ORDERED: FURO-151 MT (21:01)
[2019-09-05] MEDS ORDERED: ATOR10TA MT (21:01)
[2019-09-05] MEDS ORDERED: DILT120T13 MT (21:01)
[2019-09-05] MEDS ORDERED: HYDR-4135 MT (21:01)
[2019-09-05] MEDS ORDERED: DOXA4TAB2 MT (21:01)
[2019-09-05] MEDS ORDERED: AMOX-494 MT (21:01)
[2019-09-05] MEDS ORDERED: DEXTROSE 50% WATER 50ML SYRINGE IV PRN (22:00)
[2019-09-05] MEDS: BLOOD SUGAR DIAGNOSTIC STRIP TEST SCH (22:38)
[2019-09-05] MEDS: DOCUSATE SODIUM 100MG CAPSULE PO SCH (22:56)
[2019-09-05] MEDS: AMOXICILLIN 500 MG CAPSULE PO SCH (22:56)
[2019-09-05] MEDS: HYDRALAZINE HCL 50MG TABLET PO SCH (22:57)
[2019-09-05] MEDS: APIXABAN 2.5 MG TABLET PO SCH (23:00)
[2019-09-05] MEDS: INSULIN LISPRO 100 UNITS/ML SUBCUT SCH (23:02)
[2019-09-05] MEDS ORDERED: FUROSEMIDE 40MG/4ML VIAL IVP NR (23:15)
[2019-09-06] VITALS (7 sets, daily range): BP systolic 115–147; BP diastolic 63–92
[2019-09-06] MEDS: HYDRALAZINE HCL 50MG TABLET PO SCH ×3 (05:09→21:40)
[2019-09-06] MEDS: AMOXICILLIN 500 MG CAPSULE PO SCH ×3 (05:09→21:40)
[2019-09-06] MEDS ORDERED: DILTIAZEM HCL 60MG TABLET PO SCH (06:00)
[2019-09-06] MEDS: BLOOD SUGAR DIAGNOSTIC STRIP TEST SCH ×4 (06:05→20:21)
[2019-09-06 06:18] LABS: BASOPHILS % 1.4 % (0.0-2.0); EOSINOPHILS % 3.1 % (0.0-5.0); HEMATOCRIT. 25.6 % (42.0-52.0); HEMOGLOBIN. 8.5 g/dL (14.0-18.0); LYMPHOCYTES % 19.7 % (20.0-50.0); MEAN CORPUSCULAR HEMOGLOBIN 32.7 pg (28.0-32.0); MEAN CORPUSCULAR VOLUME 98.7 fL (80.0-94.0); MEAN PLATELET VOLUME 9.4 fl (7.4-10.4); MONOCYTES % 10.4 % (2.0-8.0); NEUTROPHILS % 65.4 % (40.0-76.0); PLATELET 132 x1000/uL (130-400); RED CELL DISTRIBUTION WIDTH 16.7 % (11.6-14.6)
[2019-09-06] MEDS: INSULIN LISPRO 100 UNITS/ML SUBCUT SCH ×4 (06:43→20:34)
[2019-09-06 06:46] LABS: PHOSPHORUS 4.4 mg/dL (2.5-4.9)
[2019-09-06] MEDS ORDERED: FUROSEMIDE 40MG/4ML VIAL IVP NR (07:15)
[2019-09-06] MEDS: APIXABAN 2.5 MG TABLET PO SCH ×2 (08:42→16:59)
[2019-09-06] MEDS: DOCUSATE SODIUM 100MG CAPSULE PO SCH (08:42)
[2019-09-06] MEDS: DOXAZOSIN MESYLATE 4MG TABLET PO SCH ×2 (08:42→17:00)
[2019-09-06] MEDS: ASPIRIN 81MG TABLET PO SCH (08:42)
[2019-09-06] MEDS: LEVOTHYROXINE SODIUM 100MCG TABLET PO SCH (08:58)
[2019-09-06] MEDS: ACETAMINOPHEN 325MG TABLET PO PRN (18:59)
[2019-09-06] MEDS: ATORVASTATIN CALCIUM 10MG TABLET PO SCH (20:21)
[2019-09-06] MEDS: DILTIAZEM HCL 60MG TABLET PO SCH (20:21)
[2019-09-07] VITALS: BP 114/64
[2019-09-07] MEDS: ACETAMINOPHEN 325MG TABLET PO PRN (03:58)
[2019-09-07 04:00] VITALS: BP 142/74
[2019-09-07] MEDS: AMOXICILLIN 500 MG CAPSULE PO SCH ×3 (05:10→21:18)
[2019-09-07] MEDS: HYDRALAZINE HCL 50MG TABLET PO SCH ×3 (05:11→21:18)
[2019-09-07] MEDS: LEVOTHYROXINE SODIUM 100MCG TABLET PO SCH (06:12)
[2019-09-07] MEDS: BLOOD SUGAR DIAGNOSTIC STRIP TEST SCH ×4 (06:12→21:33)
[2019-09-07] MEDS: INSULIN LISPRO 100 UNITS/ML SUBCUT SCH ×4 (06:17→21:30)
[2019-09-07 08:00] VITALS: BP 131/81
[2019-09-07] MEDS: DOCUSATE SODIUM 100MG CAPSULE PO SCH (08:53)
[2019-09-07] MEDS: DILTIAZEM HCL 60MG TABLET PO SCH ×2 (08:53→21:18)
[2019-09-07] MEDS: APIXABAN 2.5 MG TABLET PO SCH ×2 (08:53→17:15)
[2019-09-07] MEDS: ASPIRIN 81MG TABLET PO SCH (08:54)
[2019-09-07] MEDS: DOXAZOSIN MESYLATE 4MG TABLET PO SCH ×2 (08:54→17:00)
[2019-09-07 12:00] VITALS: BP 125/76
[2019-09-07 16:00] VITALS: BP 100/62
[2019-09-07 20:00] VITALS: BP 131/88
[2019-09-07] MEDS: ATORVASTATIN CALCIUM 10MG TABLET PO SCH (21:18)
[2019-09-07] MEDS: CEFTRIAXONE 1 G PREMIX 50 ML IV SCH (23:54)
[2019-09-08] VITALS (7 sets, daily range): BP systolic 105–152; BP diastolic 53–79
[2019-09-08] MEDS: HYDRALAZINE HCL 50MG TABLET PO SCH ×3 (06:14→21:06)
[2019-09-08] MEDS: AMOXICILLIN 500 MG CAPSULE PO SCH ×2 (06:14→14:12)
[2019-09-08] MEDS: LEVOTHYROXINE SODIUM 100MCG TABLET PO SCH (06:26)
[2019-09-08] MEDS: INSULIN LISPRO 100 UNITS/ML SUBCUT SCH ×4 (06:35→21:00)
[2019-09-08] MEDS: BLOOD SUGAR DIAGNOSTIC STRIP TEST SCH ×4 (07:03→21:01)
[2019-09-08] MEDS: ACETAMINOPHEN 325MG TABLET PO PRN (07:05)
[2019-09-08 07:55] LABS: BASOPHILS % 0.5 % (0.0-2.0); HEMATOCRIT. 26.8 % (42.0-52.0); HEMOGLOBIN. 8.7 g/dL (14.0-18.0); MEAN CORPUSCULAR HEMOGLOBIN 32.7 pg (28.0-32.0); MEAN CORPUSCULAR VOLUME 100.4 fL (80.0-94.0); MEAN PLATELET VOLUME 9.1 fl (7.4-10.4); MONOCYTES % 9.4 % (2.0-8.0); NEUTROPHILS % 67.1 % (40.0-76.0); PLATELET 135 x1000/uL (130-400); RED BLOOD CELL COUNT 2.67 mill/uL (4.7-6.1); RED CELL DISTRIBUTION WIDTH 16.7 % (11.6-14.6)
[2019-09-08] MEDS: DILTIAZEM HCL 60MG TABLET PO SCH ×2 (08:49→21:06)
[2019-09-08] MEDS: APIXABAN 2.5 MG TABLET PO SCH ×2 (08:49→17:16)
[2019-09-08] MEDS: ASPIRIN 81MG TABLET PO SCH (08:49)
[2019-09-08] MEDS: DOCUSATE SODIUM 100MG CAPSULE PO SCH (08:49)
[2019-09-08] MEDS: DOXAZOSIN MESYLATE 4MG TABLET PO SCH ×2 (08:50→17:14)
[2019-09-08] MEDS ORDERED: FUROSEMIDE 40MG/4ML VIAL IVP NR (19:05)
[2019-09-08] MEDS: ATORVASTATIN CALCIUM 10MG TABLET PO SCH (21:05)
[2019-09-08] MEDS: CEFTRIAXONE 1 G PREMIX 50 ML IV SCH (23:34)
[2019-09-09] VITALS: BP 123/75
[2019-09-09] MEDS: LEVOTHYROXINE SODIUM 100MCG TABLET PO SCH (06:30)
[2019-09-09] MEDS: HYDRALAZINE HCL 50MG TABLET PO SCH ×3 (06:30→21:44)
[2019-09-09] MEDS: BLOOD SUGAR DIAGNOSTIC STRIP TEST SCH ×4 (06:31→20:35)
[2019-09-09] MEDS: INSULIN LISPRO 100 UNITS/ML SUBCUT SCH ×4 (06:31→20:35)
[2019-09-09 08:00] VITALS: BP 121/77
[2019-09-09 08:26] LABS: BASOPHILS % 1.6 % (0.0-2.0); EOSINOPHILS % 2.5 % (0.0-5.0); HEMATOCRIT. 25.3 % (42.0-52.0); HEMOGLOBIN. 8.4 g/dL (14.0-18.0); MEAN CORPUSCULAR HEMOGLOBIN 32.5 pg (28.0-32.0); MEAN PLATELET VOLUME 8.8 fl (7.4-10.4); MONOCYTES % 8.9 % (2.0-8.0); PLATELET 124 x1000/uL (130-400); RED BLOOD CELL COUNT 2.58 mill/uL (4.7-6.1); RED CELL DISTRIBUTION WIDTH 16.9 % (11.6-14.6)
[2019-09-09] MEDS: DOCUSATE SODIUM 100MG CAPSULE PO SCH (08:28)
[2019-09-09] MEDS: DOXAZOSIN MESYLATE 4MG TABLET PO SCH ×2 (08:28→16:29)
[2019-09-09] MEDS: DILTIAZEM HCL 60MG TABLET PO SCH (08:29)
[2019-09-09] MEDS: ASPIRIN 81MG TABLET PO SCH (08:29)
[2019-09-09] MEDS: AMOXICILLIN 500 MG CAPSULE PO SCH ×2 (08:29→20:37)
[2019-09-09] MEDS: APIXABAN 2.5 MG TABLET PO SCH ×2 (08:29→17:19)
[2019-09-09] MEDS ORDERED: FUROSEMIDE 40MG/4ML VIAL IVP SCH (11:45)
[2019-09-09] MEDS ORDERED: BISACODYL 10MG SUPP PR SCH (11:45)
[2019-09-09 12:00] VITALS: BP 98/68
[2019-09-09 16:50] VITALS: BP 95/62
[2019-09-09] MEDS: FERROUS SULFATE 325MG TABLET PO SCH (17:19)
[2019-09-09] MEDS: ACETAMINOPHEN 325MG TABLET PO PRN (17:20)
[2019-09-09] MEDS ORDERED: CALCIUM ACETATE 667MG CAPSULE PO SCH (17:40)
[2019-09-09] MEDS: CALCIUM CARBONATE 500MG TABLET CHEW PO SCH (17:54)
[2019-09-09 20:00] VITALS: BP 111/66
[2019-09-09] MEDS: ATORVASTATIN CALCIUM 10MG TABLET PO SCH (20:36)
[2019-09-09] MEDS: CARVEDILOL 6.25 MG TABLET PO SCH (20:37)
[2019-09-09] MEDS ORDERED: EPOETIN ALFA 10000UNITS/ML VIAL SUBCUT SCH (21:00)
[2019-09-09] MEDS: CEFTRIAXONE 1 G PREMIX 50 ML IV SCH (23:29)
[2019-09-10] VITALS: BP 111/70
[2019-09-10 04:00] VITALS: BP 105/64
[2019-09-10] MEDS: HYDRALAZINE HCL 50MG TABLET PO SCH ×3 (05:03→22:32)
[2019-09-10] MEDS: LEVOTHYROXINE SODIUM 100MCG TABLET PO SCH (06:20)
[2019-09-10] MEDS: BLOOD SUGAR DIAGNOSTIC STRIP TEST SCH ×4 (06:26→20:37)
[2019-09-10] MEDS: INSULIN LISPRO 100 UNITS/ML SUBCUT SCH ×4 (06:26→20:37)
[2019-09-10 07:43] LABS: BASOPHILS % 0.4 % (0.0-2.0); EOSINOPHILS % 3.3 % (0.0-5.0); HEMATOCRIT. 26.1 % (42.0-52.0); HEMOGLOBIN. 8.5 g/dL (14.0-18.0); MEAN CORPUSCULAR HEMOGLOBIN 32.3 pg (28.0-32.0); MEAN CORPUSCULAR VOLUME 98.9 fL (80.0-94.0); MEAN PLATELET VOLUME 9.5 fl (7.4-10.4); MONOCYTES % 10.7 % (2.0-8.0); NEUTROPHILS % 64.6 % (40.0-76.0); PLATELET 123 x1000/uL (130-400); RED BLOOD CELL COUNT 2.64 mill/uL (4.7-6.1); RED CELL DISTRIBUTION WIDTH 16.5 % (11.6-14.6)
[2019-09-10 07:54] LABS: PHOSPHORUS 4.8 mg/dL (2.5-4.9)
[2019-09-10 08:00] VITALS: BP 146/90
[2019-09-10] MEDS: FERROUS SULFATE 325MG TABLET PO SCH ×2 (10:03→16:24)
[2019-09-10] MEDS: CALCIUM CARBONATE 500MG TABLET CHEW PO SCH ×3 (10:04→16:24)
[2019-09-10] MEDS: AMOXICILLIN 500 MG CAPSULE PO SCH ×2 (10:05→20:36)
[2019-09-10] MEDS: ASPIRIN 81MG TABLET PO SCH (10:05)
[2019-09-10] MEDS: CARVEDILOL 6.25 MG TABLET PO SCH ×2 (10:05→20:36)
[2019-09-10] MEDS: ALLOPURINOL 100 MG TABLET PO SCH (10:05)
[2019-09-10] MEDS: DOCUSATE SODIUM 100MG CAPSULE PO SCH (10:05)
[2019-09-10] MEDS: GUAIFENESIN/CODEINE 100-10MG/5ML UDC PO PRN (10:06)
[2019-09-10] MEDS: BISACODYL 10MG SUPP PR SCH ×2 (10:06→12:03)
[2019-09-10] MEDS: APIXABAN 2.5 MG TABLET PO SCH ×2 (10:06→16:24)
[2019-09-10] MEDS: DOXAZOSIN MESYLATE 4MG TABLET PO SCH ×2 (10:06→16:24)
[2019-09-10 12:00] VITALS: BP 126/70
[2019-09-10 16:00] VITALS: BP 129/80
[2019-09-10 20:00] VITALS: BP 115/60
[2019-09-10] MEDS: ATORVASTATIN CALCIUM 10MG TABLET PO SCH (20:36)
[2019-09-10] MEDS: CEFTRIAXONE 1 G PREMIX 50 ML IV SCH (22:32)
[2019-09-11] VITALS: BP 103/62
[2019-09-11] MEDS: ACETAMINOPHEN 325MG TABLET PO PRN (03:21)
[2019-09-11 04:00] VITALS: BP 116/67
[2019-09-11] MEDS: HYDRALAZINE HCL 50MG TABLET PO SCH ×3 (05:40→21:03)
[2019-09-11] MEDS: LEVOTHYROXINE SODIUM 100MCG TABLET PO SCH (06:15)
[2019-09-11] MEDS: BLOOD SUGAR DIAGNOSTIC STRIP TEST SCH ×4 (06:26→21:03)
[2019-09-11] MEDS: INSULIN LISPRO 100 UNITS/ML SUBCUT SCH ×4 (06:26→21:00)
[2019-09-11 08:00] VITALS: BP 145/75
[2019-09-11] MEDS: AMOXICILLIN 500 MG CAPSULE PO SCH ×2 (08:37→21:02)
[2019-09-11] MEDS: CALCIUM CARBONATE 500MG TABLET CHEW PO SCH ×3 (08:37→17:31)
[2019-09-11] MEDS: FERROUS SULFATE 325MG TABLET PO SCH ×2 (08:38→17:32)
[2019-09-11] MEDS: ASPIRIN 81MG TABLET PO SCH (08:38)
[2019-09-11] MEDS: CARVEDILOL 6.25 MG TABLET PO SCH ×2 (08:38→21:00)
[2019-09-11] MEDS: DOCUSATE SODIUM 100MG CAPSULE PO SCH (08:38)
[2019-09-11] MEDS: DOXAZOSIN MESYLATE 4MG TABLET PO SCH ×2 (08:38→17:32)
[2019-09-11] MEDS: APIXABAN 2.5 MG TABLET PO SCH ×2 (08:43→17:32)
[2019-09-11] MEDS: ALLOPURINOL 100 MG TABLET PO SCH (08:43)
[2019-09-11 16:00] VITALS: BP 135/96
[2019-09-11 17:00] LABS: BASOPHILS % 1.1 % (0.0-2.0); EOSINOPHILS % 3.1 % (0.0-5.0); HEMATOCRIT. 29.6 % (42.0-52.0); HEMOGLOBIN. 9.7 g/dL (14.0-18.0); MEAN CORPUSCULAR HEMOGLOBIN 32.6 pg (28.0-32.0); MEAN CORPUSCULAR VOLUME 99.1 fL (80.0-94.0); MEAN PLATELET VOLUME 9.3 fl (7.4-10.4); MONOCYTES % 7.9 % (2.0-8.0); NEUTROPHILS % 62.9 % (40.0-76.0); PLATELET 140 x1000/uL (130-400); RED BLOOD CELL COUNT 2.98 mill/uL (4.7-6.1); RED CELL DISTRIBUTION WIDTH 16.3 % (11.6-14.6)
[2019-09-11 20:00] VITALS: BP 106/74
[2019-09-11] MEDS: ATORVASTATIN CALCIUM 10MG TABLET PO SCH (21:02)
[2019-09-11] MEDS: CEFTRIAXONE 1 G PREMIX 50 ML IV SCH (22:36)
[2019-09-12] VITALS: BP 114/56
[2019-09-12] MEDS: IPRATROPIUM/ALBUTEROL 0.5-3(2.5)MG/3ML NEB HHN PRN ×3 (01:46→22:18)
[2019-09-12] MEDS: GUAIFENESIN/CODEINE 100-10MG/5ML UDC PO PRN (01:47)
[2019-09-12 04:00] VITALS: BP 116/72
[2019-09-12] MEDS: HYDRALAZINE HCL 50MG TABLET PO SCH ×3 (05:53→21:03)
[2019-09-12] MEDS: LEVOTHYROXINE SODIUM 100MCG TABLET PO SCH (06:30)
[2019-09-12] MEDS: BLOOD SUGAR DIAGNOSTIC STRIP TEST SCH ×4 (06:45→21:00)
[2019-09-12] MEDS: INSULIN LISPRO 100 UNITS/ML SUBCUT SCH ×4 (06:46→21:00)
[2019-09-12 07:36] LABS: BASOPHILS % 0.7 % (0.0-2.0); EOSINOPHILS % 2.4 % (0.0-5.0); HEMATOCRIT. 27.3 % (42.0-52.0); LYMPHOCYTES % 24.8 % (20.0-50.0); MEAN CORPUSCULAR HEMOGLOBIN 32.6 pg (28.0-32.0); MEAN CORPUSCULAR VOLUME 99.2 fL (80.0-94.0); MEAN PLATELET VOLUME 9.4 fl (7.4-10.4); MONOCYTES % 9.4 % (2.0-8.0); NEUTROPHILS % 62.7 % (40.0-76.0); PLATELET 132 x1000/uL (130-400); RED BLOOD CELL COUNT 2.75 mill/uL (4.7-6.1); RED CELL DISTRIBUTION WIDTH 17.1 % (11.6-14.6)
[2019-09-12 08:00] VITALS: BP 126/80
[2019-09-12] MEDS: CALCIUM CARBONATE 500MG TABLET CHEW PO SCH ×3 (08:13→17:26)
[2019-09-12] MEDS: FERROUS SULFATE 325MG TABLET PO SCH ×2 (08:13→17:29)
[2019-09-12] MEDS: APIXABAN 2.5 MG TABLET PO SCH ×2 (08:54→17:29)
[2019-09-12] MEDS: AMOXICILLIN 500 MG CAPSULE PO SCH ×2 (08:54→21:10)
[2019-09-12] MEDS: DOCUSATE SODIUM 100MG CAPSULE PO SCH (08:54)
[2019-09-12] MEDS: ASPIRIN 81MG TABLET PO SCH (08:54)
[2019-09-12] MEDS: ALLOPURINOL 100 MG TABLET PO SCH (08:54)
[2019-09-12] MEDS: DOXAZOSIN MESYLATE 4MG TABLET PO SCH ×2 (08:55→17:29)
[2019-09-12] MEDS: CARVEDILOL 6.25 MG TABLET PO SCH ×2 (08:55→21:00)
[2019-09-12] MEDS: BISACODYL 10MG SUPP PR SCH (09:00)
[2019-09-12] MEDS: ACETAMINOPHEN 325MG TABLET PO PRN (11:49)
[2019-09-12 12:00] VITALS: BP 106/68
[2019-09-12] MEDS: BENZONATATE 100MG CAPSULE PO SCH ×2 (14:51→21:10)
[2019-09-12 16:00] VITALS: BP 124/64
[2019-09-12 20:00] VITALS: BP 104/73
[2019-09-12] MEDS: ATORVASTATIN CALCIUM 10MG TABLET PO SCH (21:10)
[2019-09-12] MEDS: CEFTRIAXONE 1 G PREMIX 50 ML IV SCH (22:36)
[2019-09-13] VITALS: BP 124/82
[2019-09-13 04:00] VITALS: BP 128/59
[2019-09-13] MEDS: LEVOTHYROXINE SODIUM 100MCG TABLET PO SCH (06:11)
[2019-09-13] MEDS: BENZONATATE 100MG CAPSULE PO SCH ×3 (06:11→21:08)
[2019-09-13] MEDS: HYDRALAZINE HCL 50MG TABLET PO SCH ×3 (06:12→21:52)
[2019-09-13] MEDS: BLOOD SUGAR DIAGNOSTIC STRIP TEST SCH ×4 (06:12→21:09)
[2019-09-13] MEDS: INSULIN LISPRO 100 UNITS/ML SUBCUT SCH ×4 (07:20→21:17)
[2019-09-13 07:28] LABS: BASOPHILS % 0.6 % (0.0-2.0); HEMATOCRIT. 26.6 % (42.0-52.0); HEMOGLOBIN. 8.6 g/dL (14.0-18.0); LYMPHOCYTES % 23.4 % (20.0-50.0); MEAN CORPUSCULAR HEMOGLOBIN 32.5 pg (28.0-32.0); MEAN PLATELET VOLUME 9.4 fl (7.4-10.4); MONOCYTES % 9.1 % (2.0-8.0); NEUTROPHILS % 63.9 % (40.0-76.0); PLATELET 135 x1000/uL (130-400); RED BLOOD CELL COUNT 2.66 mill/uL (4.7-6.1); RED CELL DISTRIBUTION WIDTH 16.8 % (11.6-14.6)
[2019-09-13] MEDS: CALCIUM CARBONATE 500MG TABLET CHEW PO SCH ×3 (07:32→17:50)
[2019-09-13] MEDS: FERROUS SULFATE 325MG TABLET PO SCH ×2 (07:32→17:50)
[2019-09-13] MEDS: GUAIFENESIN/CODEINE 100-10MG/5ML UDC PO PRN (07:32)
[2019-09-13 08:00] VITALS: BP 124/82
[2019-09-13] MEDS: DOCUSATE SODIUM 100MG CAPSULE PO SCH (08:51)
[2019-09-13] MEDS: ALLOPURINOL 100 MG TABLET PO SCH (08:51)
[2019-09-13] MEDS: CARVEDILOL 6.25 MG TABLET PO SCH ×2 (08:51→21:08)
[2019-09-13] MEDS: DOXAZOSIN MESYLATE 4MG TABLET PO SCH ×2 (08:51→17:50)
[2019-09-13] MEDS: ASPIRIN 81MG TABLET PO SCH (08:52)
[2019-09-13] MEDS: APIXABAN 2.5 MG TABLET PO SCH ×2 (08:52→17:50)
[2019-09-13 13:00] VITALS: BP 103/63
[2019-09-13 16:00] VITALS: BP 123/78
[2019-09-13 20:00] VITALS: BP 112/70
[2019-09-13] MEDS: IPRATROPIUM/ALBUTEROL 0.5-3(2.5)MG/3ML NEB HHN PRN (21:03)
[2019-09-13] MEDS: ATORVASTATIN CALCIUM 10MG TABLET PO SCH (21:08)
[2019-09-14] VITALS: BP 125/76
[2019-09-14] MEDS: CEFTRIAXONE 1 G PREMIX 50 ML IV SCH
[2019-09-14] MEDS: GUAIFENESIN/CODEINE 100-10MG/5ML UDC PO PRN
[2019-09-14] MEDS: ACETAMINOPHEN 325MG TABLET PO PRN (01:47)
[2019-09-14 04:00] VITALS: BP 123/78
[2019-09-14] MEDS: HYDRALAZINE HCL 50MG TABLET PO SCH ×3 (05:44→21:11)
[2019-09-14] MEDS: BENZONATATE 100MG CAPSULE PO SCH ×3 (05:44→21:11)
[2019-09-14] MEDS: LEVOTHYROXINE SODIUM 100MCG TABLET PO SCH (06:26)
[2019-09-14] MEDS: INSULIN LISPRO 100 UNITS/ML SUBCUT SCH ×4 (06:31→21:00)
[2019-09-14] MEDS: BLOOD SUGAR DIAGNOSTIC STRIP TEST SCH ×4 (06:31→21:38)
[2019-09-14] MEDS: BISACODYL 10MG SUPP PR SCH ×2 (09:00→09:11)
[2019-09-14] MEDS: CALCIUM CARBONATE 500MG TABLET CHEW PO SCH ×3 (09:06→17:58)
[2019-09-14] MEDS: DOCUSATE SODIUM 100MG CAPSULE PO SCH (09:06)
[2019-09-14] MEDS: APIXABAN 2.5 MG TABLET PO SCH ×2 (09:07→17:58)
[2019-09-14] MEDS: ASPIRIN 81MG TABLET PO SCH (09:07)
[2019-09-14] MEDS: CARVEDILOL 6.25 MG TABLET PO SCH (09:07)
[2019-09-14] MEDS: ALLOPURINOL 100 MG TABLET PO SCH (09:07)
[2019-09-14] MEDS: FERROUS SULFATE 325MG TABLET PO SCH ×2 (09:08→17:58)
[2019-09-14] MEDS: DOXAZOSIN MESYLATE 4MG TABLET PO SCH ×2 (09:09→17:59)
[2019-09-14 09:10] VITALS: BP 124/64
[2019-09-14 12:15] VITALS: BP 115/64
[2019-09-14 17:57] VITALS: BP 125/70
[2019-09-14 20:25] VITALS: BP 136/76
[2019-09-14] MEDS: CARVEDILOL 12.5MG TABLET PO SCH (21:11)
[2019-09-14] MEDS: ATORVASTATIN CALCIUM 10MG TABLET PO SCH (21:11)
[2019-09-15 00:01] VITALS: BP 133/68
[2019-09-15 04:14] VITALS: BP 126/80
[2019-09-15] MEDS: HYDRALAZINE HCL 50MG TABLET PO SCH ×3 (05:38→22:20)
[2019-09-15] MEDS: LEVOTHYROXINE SODIUM 100MCG TABLET PO SCH (05:38)
[2019-09-15] MEDS: BLOOD SUGAR DIAGNOSTIC STRIP TEST SCH ×4 (06:18→21:00)
[2019-09-15] MEDS: INSULIN LISPRO 100 UNITS/ML SUBCUT SCH ×4 (06:18→21:00)
[2019-09-15 08:00] VITALS: BP 149/79
[2019-09-15] MEDS: CALCIUM CARBONATE 500MG TABLET CHEW PO SCH ×3 (08:10→16:41)
[2019-09-15] MEDS: DOCUSATE SODIUM 100MG CAPSULE PO SCH (08:11)
[2019-09-15] MEDS: DOXAZOSIN MESYLATE 4MG TABLET PO SCH ×2 (08:11→16:41)
[2019-09-15] MEDS: ASPIRIN 81MG TABLET PO SCH (08:12)
[2019-09-15] MEDS: ALLOPURINOL 100 MG TABLET PO SCH (08:12)
[2019-09-15] MEDS: FERROUS SULFATE 325MG TABLET PO SCH ×2 (08:12→16:41)
[2019-09-15] MEDS: CARVEDILOL 12.5MG TABLET PO SCH ×2 (08:12→22:12)
[2019-09-15] MEDS: APIXABAN 2.5 MG TABLET PO SCH ×2 (08:12→16:40)
[2019-09-15] MEDS: BISACODYL 10MG SUPP PR SCH (09:00)
[2019-09-15 11:51] VITALS: BP 116/63
[2019-09-15] MEDS: BENZONATATE 100MG CAPSULE PO SCH ×2 (13:28→22:20)
[2019-09-15 16:00] VITALS: BP 130/80
[2019-09-15 20:00] VITALS: BP 129/79
[2019-09-15] MEDS: ATORVASTATIN CALCIUM 10MG TABLET PO SCH (22:13)
[2019-09-16] VITALS: BP 132/78
[2019-09-16 04:00] VITALS: BP 138/73
[2019-09-16] MEDS: BENZONATATE 100MG CAPSULE PO SCH (05:52)
[2019-09-16] MEDS: HYDRALAZINE HCL 50MG TABLET PO SCH (05:53)
[2019-09-16] MEDS: BLOOD SUGAR DIAGNOSTIC STRIP TEST SCH ×2 (06:36→12:09)
[2019-09-16] MEDS: LEVOTHYROXINE SODIUM 100MCG TABLET PO SCH (07:03)
[2019-09-16] MEDS: CALCIUM CARBONATE 500MG TABLET CHEW PO SCH ×2 (07:04→12:09)
[2019-09-16] MEDS: FERROUS SULFATE 325MG TABLET PO SCH (07:04)
[2019-09-16] MEDS: INSULIN LISPRO 100 UNITS/ML SUBCUT SCH ×2 (07:05→12:09)
[2019-09-16 07:29] LABS: BASOPHILS % 0.7 % (0.0-2.0); EOSINOPHILS % 2.5 % (0.0-5.0); HEMATOCRIT. 27.1 % (42.0-52.0); HEMOGLOBIN. 8.9 g/dL (14.0-18.0); LYMPHOCYTES % 29.2 % (20.0-50.0); MEAN CORPUSCULAR HEMOGLOBIN 32.8 pg (28.0-32.0); MEAN CORPUSCULAR VOLUME 99.7 fL (80.0-94.0); MEAN PLATELET VOLUME 8.8 fl (7.4-10.4); MONOCYTES % 9.7 % (2.0-8.0); NEUTROPHILS % 57.9 % (40.0-76.0); PLATELET 131 x1000/uL (130-400); RED BLOOD CELL COUNT 2.72 mill/uL (4.7-6.1); RED CELL DISTRIBUTION WIDTH 16.4 % (11.6-14.6)
[2019-09-16 08:00] VITALS: BP 138/73
[2019-09-16] MEDS: BISACODYL 10MG SUPP PR SCH (08:08)
[2019-09-16] MEDS: DOCUSATE SODIUM 100MG CAPSULE PO SCH (08:09)
[2019-09-16] MEDS: ASPIRIN 81MG TABLET PO SCH (08:09)
[2019-09-16] MEDS: CARVEDILOL 12.5MG TABLET PO SCH (08:09)
[2019-09-16] MEDS: APIXABAN 2.5 MG TABLET PO SCH (08:09)
[2019-09-16] MEDS: ALLOPURINOL 100 MG TABLET PO SCH (08:09)
[2019-09-16] MEDS: DOXAZOSIN MESYLATE 4MG TABLET PO SCH (08:10)
[2019-09-16 12:00] VITALS: BP 124/76
[2019-09-16 13:35] VITALS: BP 124/76
== END 2019-09-16 14:19 | disposition home health service (06) | DRG 291 ==
LOC: ER 11:27 → 8WST 16:32 → EDBEDREQ 17:00 → ENRESERV 17:28
PROVIDERS: ADMIT Internal Medicine; ATTEND Internal Medicine
DX: I13.0 Hypertensive heart and chronic kidney disease with heart failure and stage 1 through stage 4 chronic kidney disease, or unspecified chronic kidney disease (principal); I50.41 Acute combined systolic (congestive) and diastolic (congestive) heart failure; N18.4 Chronic kidney disease, stage 4 (severe); N17.9 Acute kidney failure, unspecified; I48.92 Unspecified atrial flutter; E11.22 Type 2 diabetes mellitus with diabetic chronic kidney disease; E11.42 Type 2 diabetes mellitus with diabetic polyneuropathy; I87.2 Venous insufficiency (chronic) (peripheral); I42.9 Cardiomyopathy, unspecified; D63.1 Anemia in chronic kidney disease; D69.6 Thrombocytopenia, unspecified; D72.819 Decreased white blood cell count, unspecified; E03.9 Hypothyroidism, unspecified; E11.51 Type 2 diabetes mellitus with diabetic peripheral angiopathy without gangrene; E78.5 Hyperlipidemia, unspecified; I08.0 Rheumatic disorders of both mitral and aortic valves; I48.0 Paroxysmal atrial fibrillation; J44.9 Chronic obstructive pulmonary disease, unspecified; M10.9 Gout, unspecified; R26.9 Unspecified abnormalities of gait and mobility; J20.9 Acute bronchitis, unspecified; Z77.22 Contact with and (suspected) exposure to environmental tobacco smoke (acute) (chronic); Z79.01 Long term (current) use of anticoagulants; Z86.73 Personal history of transient ischemic attack (TIA), and cerebral infarction without residual deficits; Z90.89 Acquired absence of other organs; Z79.84 Long term (current) use of oral hypoglycemic drugs; Z79.899 Other long term (current) drug therapy; Z79.82 Long term (current) use of aspirin; Z87.440 Personal history of urinary (tract) infections
CPT/HCPCS: 36415; 71045; 80048; 82270; 82962; 83036; 83540; 83550; 83735; 83880; 83970; 84100; 84443; 84484; 84550; 92523; 93005; 93306; 94640; 97110; 97116; 97162; 97166; 97530; 97535; 99285; J0696; J0885; J1815; J1940; J7620

== ENCOUNTER 2020-01-04 16:18 | Inpatient (IN) | payer MEDICARE, OTHER ==
[~2020-01-04] VITALS: Ht 182.9 cm; Wt 101.7 kg
[~2020-01-04 16:18] MED LIST changes: -AMLO10TA80 PO; +AMOX-494 MT; +APIX2.5T MT; -ASPI-1393 PO; +ASPI-1497 PO; +ATOR10TA MT; -BRIM10DR2 TOP; +DILT120T13 MT; +DOXA4TAB2 MT; +FURO-151 MT; +HYDR-4135 MT; -KETO5DRO37 LEFTEYE; -LEVO50TA8 PO; -LOSA100T32 PO; -PREDG05 OP
[2020-01-04] MEDS ORDERED: DILTIAZEM HCL 5MG/ML 5ML VIAL IV ONE (17:15)
[2020-01-04 17:28] LABS: CHLORIDE 114 mEq/L (98-107)
[2020-01-04 17:29] LABS: BASOPHILS % 0.8 % (0.0-2.0); EOSINOPHILS % 2.1 % (0.0-5.0); HEMOGLOBIN. 11.6 g/dL (14.0-18.0); LYMPHOCYTES % 27.2 % (20.0-50.0); MEAN CORPUSCULAR HEMOGLOBIN 32.5 pg (28.0-32.0); MEAN PLATELET VOLUME 9.2 fl (7.4-10.4); MONOCYTES % 8.2 % (2.0-8.0); NEUTROPHILS % 61.7 % (40.0-76.0); PLATELET 149 x1000/uL (130-400); PROTHROMBIN TIME 10.8 sec (9.6-11.0); RED BLOOD CELL COUNT 3.57 mill/uL (4.7-6.1); RED CELL DISTRIBUTION WIDTH 16.6 % (11.6-14.6)
[2020-01-04 21:14] VITALS: BP 163/99
[2020-01-04] MEDS ORDERED: DOXA8TAB81 PO (21:41)
[2020-01-04] MEDS ORDERED: CARV12.545 PO (21:42)
[2020-01-04] MEDS ORDERED: ACET-2708 PO (21:45)
[2020-01-04] MEDS ORDERED: LEVO100T PO (21:45)
[2020-01-04 22:00] VITALS: BP 157/103
[2020-01-04] MEDS: BLOOD SUGAR DIAGNOSTIC STRIP TEST SCH (22:09)
[2020-01-04] MEDS: INSULIN LISPRO 100 UNITS/ML SUBCUT SCH (22:30)
[2020-01-04] MEDS ORDERED: DEXTROSE 50% WATER 50ML SYRINGE IV PRN (22:30)
[2020-01-04 23:17] VITALS: BP 178/115
[2020-01-04] MEDS: DOXAZOSIN MESYLATE 4MG TABLET PO SCH (23:18)
[2020-01-04 23:52] VITALS: BP 167/103
[2020-01-05] VITALS (19 sets, daily range): BP systolic 110–168; BP diastolic 56–106
[2020-01-05] MEDS: BLOOD SUGAR DIAGNOSTIC STRIP TEST SCH ×4 (06:40→20:30)
[2020-01-05] MEDS: LEVOTHYROXINE SODIUM 100MCG TABLET PO SCH (06:43)
[2020-01-05 06:45] LABS: BASOPHILS % 1.6 % (0.0-2.0); EOSINOPHILS % 2.4 % (0.0-5.0); HEMATOCRIT. 34.5 % (42.0-52.0); HEMOGLOBIN. 11.3 g/dL (14.0-18.0); LYMPHOCYTES % 33.9 % (20.0-50.0); MEAN CORPUSCULAR HEMOGLOBIN 32.2 pg (28.0-32.0); MEAN CORPUSCULAR VOLUME 98.2 fL (80.0-94.0); MEAN PLATELET VOLUME 9.9 fl (7.4-10.4); MONOCYTES % 11.7 % (2.0-8.0); NEUTROPHILS % 50.4 % (40.0-76.0); PLATELET 133 x1000/uL (130-400); RED BLOOD CELL COUNT 3.51 mill/uL (4.7-6.1); RED CELL DISTRIBUTION WIDTH 16.4 % (11.6-14.6)
[2020-01-05 06:47] LABS: CHLORIDE 113 mEq/L (98-107)
[2020-01-05] MEDS: INSULIN LISPRO 100 UNITS/ML SUBCUT SCH ×4 (07:20→20:35)
[2020-01-05] MEDS ORDERED: DILTIAZEM HCL 90MG TABLET PO SCH ×2 (09:00→10:00)
[2020-01-05] MEDS: CARVEDILOL 12.5MG TABLET PO SCH ×2 (09:07→20:30)
[2020-01-05] MEDS: ASPIRIN 81MG EC TABLET PO SCH (09:11)
[2020-01-05] MEDS: APIXABAN 2.5 MG TABLET PO SCH ×2 (09:11→16:46)
[2020-01-05] MEDS: ACETAMINOPHEN 325MG TABLET PO PRN ×2 (12:31→20:29)
[2020-01-05] MEDS: DILTIAZEM HCL 90MG TABLET PO SCH ×2 (16:30→21:15)
[2020-01-05] MEDS: FUROSEMIDE 40MG TABLET PO SCH (16:46)
[2020-01-05] MEDS: ATORVASTATIN CALCIUM 10MG TABLET PO SCH (20:29)
[2020-01-05] MEDS: DOXAZOSIN MESYLATE 4MG TABLET PO SCH (20:30)
[2020-01-05] MEDS ORDERED: LACTULOSE 20G/30ML UDC PO PRN (21:00)
[2020-01-06] VITALS (17 sets, daily range): BP systolic 93–149; BP diastolic 49–92
[2020-01-06] MEDS: DILTIAZEM HCL 90MG TABLET PO SCH (06:00)
[2020-01-06 06:12] LABS: PHOSPHORUS 5.2 mg/dL (2.5-4.9)
[2020-01-06 06:15] LABS: BASOPHILS % 0.8 % (0.0-2.0); EOSINOPHILS % 2.9 % (0.0-5.0); HEMATOCRIT. 34.3 % (42.0-52.0); HEMOGLOBIN. 11.1 g/dL (14.0-18.0); LYMPHOCYTES % 26.7 % (20.0-50.0); MEAN CORPUSCULAR VOLUME 98.6 fL (80.0-94.0); MONOCYTES % 8.8 % (2.0-8.0); NEUTROPHILS % 60.8 % (40.0-76.0); PLATELET 126 x1000/uL (130-400); RED BLOOD CELL COUNT 3.48 mill/uL (4.7-6.1); RED CELL DISTRIBUTION WIDTH 16.6 % (11.6-14.6)
[2020-01-06] MEDS: LEVOTHYROXINE SODIUM 100MCG TABLET PO SCH (06:22)
[2020-01-06] MEDS: INSULIN LISPRO 100 UNITS/ML SUBCUT SCH ×4 (07:20→20:53)
[2020-01-06] MEDS: ASPIRIN 81MG EC TABLET PO SCH (07:57)
[2020-01-06] MEDS: DOCUSATE SODIUM 250MG CAPSULE PO SCH (08:00)
[2020-01-06] MEDS: FUROSEMIDE 40MG TABLET PO SCH (08:00)
[2020-01-06] MEDS: APIXABAN 2.5 MG TABLET PO SCH ×2 (08:00→17:18)
[2020-01-06] MEDS: BLOOD SUGAR DIAGNOSTIC STRIP TEST SCH ×4 (08:00→20:53)
[2020-01-06] MEDS: CARVEDILOL 12.5MG TABLET PO SCH (08:53)
[2020-01-06] MEDS: DILTIAZEM HCL 30MG TABLET PO SCH ×3 (11:51→23:38)
[2020-01-06] MEDS: CARVEDILOL 3.125 MG TABLET PO SCH (20:51)
[2020-01-06] MEDS: ATORVASTATIN CALCIUM 10MG TABLET PO SCH (20:52)
[2020-01-06] MEDS: DOXAZOSIN MESYLATE 4MG TABLET PO SCH (20:52)
[2020-01-07] VITALS (12 sets, daily range): BP systolic 104–144; BP diastolic 68–94
[2020-01-07] MEDS: ACETAMINOPHEN 325MG TABLET PO PRN (02:05)
[2020-01-07] MEDS: BLOOD SUGAR DIAGNOSTIC STRIP TEST SCH ×3 (05:25→16:56)
[2020-01-07] MEDS: DILTIAZEM HCL 30MG TABLET PO SCH ×3 (05:55→17:12)
[2020-01-07] MEDS: LEVOTHYROXINE SODIUM 100MCG TABLET PO SCH (05:55)
[2020-01-07 06:28] LABS: BASOPHILS % 0.8 % (0.0-2.0); HEMOGLOBIN. 11.3 g/dL (14.0-18.0); LYMPHOCYTES % 28.3 % (20.0-50.0); MEAN CORPUSCULAR HEMOGLOBIN 32.6 pg (28.0-32.0); MEAN PLATELET VOLUME 8.8 fl (7.4-10.4); MONOCYTES % 11.3 % (2.0-8.0); NEUTROPHILS % 56.6 % (40.0-76.0); PLATELET 130 x1000/uL (130-400); RED BLOOD CELL COUNT 3.46 mill/uL (4.7-6.1); RED CELL DISTRIBUTION WIDTH 16.1 % (11.6-14.6)
[2020-01-07 06:34] LABS: CHLORIDE 109 mEq/L (98-107)
[2020-01-07] MEDS: INSULIN LISPRO 100 UNITS/ML SUBCUT SCH ×3 (07:20→17:12)
[2020-01-07] MEDS: CARVEDILOL 3.125 MG TABLET PO SCH (08:40)
[2020-01-07] MEDS: FUROSEMIDE 40MG TABLET PO SCH (08:40)
[2020-01-07] MEDS: DOCUSATE SODIUM 250MG CAPSULE PO SCH (08:40)
[2020-01-07] MEDS: ASPIRIN 81MG EC TABLET PO SCH (08:40)
[2020-01-07] MEDS: APIXABAN 2.5 MG TABLET PO SCH ×2 (08:40→17:12)
== END 2020-01-07 18:00 | DRG 291 ==
LOC: ER 16:18 → 3WST 17:45 → ENRESERV 20:21
PROVIDERS: ADMIT Internal Medicine; ATTEND Internal Medicine
DX: I13.0 Hypertensive heart and chronic kidney disease with heart failure and stage 1 through stage 4 chronic kidney disease, or unspecified chronic kidney disease (principal); I50.43 Acute on chronic combined systolic (congestive) and diastolic (congestive) heart failure; J96.00 Acute respiratory failure, unspecified whether with hypoxia or hypercapnia; I48.92 Unspecified atrial flutter; I48.20 Chronic atrial fibrillation, unspecified; N18.4 Chronic kidney disease, stage 4 (severe); N17.9 Acute kidney failure, unspecified; E46 Unspecified protein-calorie malnutrition; I42.9 Cardiomyopathy, unspecified; D63.1 Anemia in chronic kidney disease; E03.9 Hypothyroidism, unspecified; E11.22 Type 2 diabetes mellitus with diabetic chronic kidney disease; I08.0 Rheumatic disorders of both mitral and aortic valves; I25.10 Atherosclerotic heart disease of native coronary artery without angina pectoris; D53.9 Nutritional anemia, unspecified; D72.821 Monocytosis (symptomatic); E78.5 Hyperlipidemia, unspecified; E11.42 Type 2 diabetes mellitus with diabetic polyneuropathy; E11.51 Type 2 diabetes mellitus with diabetic peripheral angiopathy without gangrene; I43 Cardiomyopathy in diseases classified elsewhere; I48.0 Paroxysmal atrial fibrillation; I70.0 Atherosclerosis of aorta; M19.90 Unspecified osteoarthritis, unspecified site; R26.9 Unspecified abnormalities of gait and mobility; M10.9 Gout, unspecified; K59.00 Constipation, unspecified; I25.2 Old myocardial infarction; Z86.73 Personal history of transient ischemic attack (TIA), and cerebral infarction without residual deficits; Z82.49 Family history of ischemic heart disease and other diseases of the circulatory system; Z90.49 Acquired absence of other specified parts of digestive tract; Z79.84 Long term (current) use of oral hypoglycemic drugs; Z79.01 Long term (current) use of anticoagulants; Z79.2 Long term (current) use of antibiotics; Z79.82 Long term (current) use of aspirin; Z79.899 Other long term (current) drug therapy; Z68.30 Body mass index [BMI] 30.0-30.9, adult
CPT/HCPCS: 36415; 71045; 80048; 80053; 82962; 83036; 83735; 83880; 83970; 84100; 84443; 84484; 85025; 85379; 93005; 93306; 96374; 97110; 97162; 97166; 97530; 99291; J1815; J3490

== ENCOUNTER 2020-01-07 18:15 | Inpatient (IN) | payer OTHER ==
[~2020-01-07] VITALS: Ht 182.9 cm; Wt 100.7 kg
[2020-01-07 18:15] VITALS: BP 135/78
[~2020-01-07 18:15] MED LIST changes: +ACET-2708 PO; +CARV12.545 PO; -DOXA4TAB2 MT; +DOXA8TAB81 PO; +LEVO100T PO
[2020-01-07] MEDS ORDERED: DEXTROSE 50% WATER 50ML SYRINGE IV PRN (19:15)
[2020-01-07] MEDS ORDERED: HYDROCODONE/ACETAMINOPHEN 5/325MG TABLET PO PRN (19:15)
[2020-01-07 20:00] VITALS: BP 126/77
[2020-01-07] MEDS ORDERED: LACTULOSE 20G/30ML UDC PO SCH (20:00)
[2020-01-07] MEDS: INSULIN LISPRO 100 UNITS/ML SUBCUT SCH (21:00)
[2020-01-07] MEDS ORDERED: DOXAZOSIN MESYLATE 4MG TABLET PO SCH (21:00)
[2020-01-07] MEDS: BLOOD SUGAR DIAGNOSTIC STRIP TEST SCH (21:46)
[2020-01-07] MEDS: ATORVASTATIN CALCIUM 10MG TABLET PO SCH (21:59)
[2020-01-07] MEDS: CARVEDILOL 3.125 MG TABLET PO SCH (22:00)
[2020-01-08] VITALS (7 sets, daily range): BP systolic 79–137; BP diastolic 31–85
[2020-01-08] MEDS ORDERED: LACTULOSE 20G/30ML UDC PO PRN (00:15)
[2020-01-08] MEDS: DILTIAZEM HCL 30MG TABLET PO SCH ×3 (00:33→12:00)
[2020-01-08] MEDS: LEVOTHYROXINE SODIUM 100MCG TABLET PO SCH (06:11)
[2020-01-08] MEDS: BLOOD SUGAR DIAGNOSTIC STRIP TEST SCH ×4 (06:12→21:02)
[2020-01-08 07:02] LABS: BASOPHILS % 1.7 % (0.0-2.0); EOSINOPHILS % 2.7 % (0.0-5.0); HEMATOCRIT. 35.8 % (42.0-52.0); HEMOGLOBIN. 12.1 g/dL (14.0-18.0); LYMPHOCYTES % 22.5 % (20.0-50.0); MEAN CORPUSCULAR HEMOGLOBIN 32.7 pg (28.0-32.0); MONOCYTES % 12.6 % (2.0-8.0); NEUTROPHILS % 60.5 % (40.0-76.0); PLATELET 128 x1000/uL (130-400); RED BLOOD CELL COUNT 3.69 mill/uL (4.7-6.1); RED CELL DISTRIBUTION WIDTH 16.2 % (11.6-14.6)
[2020-01-08 07:29] LABS: CHLORIDE 108 mEq/L (98-107)
[2020-01-08] MEDS: CARVEDILOL 3.125 MG TABLET PO SCH ×2 (08:25→21:00)
[2020-01-08] MEDS: APIXABAN 2.5 MG TABLET PO SCH ×2 (08:25→16:47)
[2020-01-08] MEDS: DOCUSATE SODIUM 250MG CAPSULE PO SCH (08:26)
[2020-01-08] MEDS: ASPIRIN 81MG TABLET PO SCH (08:26)
[2020-01-08] MEDS: INSULIN LISPRO 100 UNITS/ML SUBCUT SCH ×4 (08:26→21:00)
[2020-01-08] MEDS ORDERED: FUROSEMIDE 40MG TABLET PO SCH (09:00)
[2020-01-08] MEDS: MIDODRINE HCL 2.5MG TABLET PO SCH ×2 (15:43→20:57)
[2020-01-08] MEDS ORDERED: NA PHOS,M-B/NA PHOS,DI-BA ENEMA 118ML PR NR (15:45)
[2020-01-08] MEDS: SODIUM CHLORIDE 0.45% 1,000 ML IV SCH (17:50)
[2020-01-08] MEDS: ACETAMINOPHEN 325MG TABLET PO PRN (18:48)
[2020-01-08] MEDS: DOXAZOSIN MESYLATE 4MG TABLET PO SCH (20:59)
[2020-01-08] MEDS: ATORVASTATIN CALCIUM 10MG TABLET PO SCH (20:59)
[2020-01-09] MEDS: BLOOD SUGAR DIAGNOSTIC STRIP TEST SCH ×4 (06:11→20:29)
[2020-01-09] MEDS: SODIUM CHLORIDE 0.45% 1,000 ML IV SCH (06:13)
[2020-01-09] MEDS: LEVOTHYROXINE SODIUM 100MCG TABLET PO SCH (06:16)
[2020-01-09] MEDS: ACETAMINOPHEN 325MG TABLET PO PRN (06:17)
[2020-01-09 06:36] LABS: BASOPHILS % 0.7 % (0.0-2.0); EOSINOPHILS % 2.8 % (0.0-5.0); HEMATOCRIT. 35.9 % (42.0-52.0); HEMOGLOBIN. 12.1 g/dL (14.0-18.0); LYMPHOCYTES % 31.1 % (20.0-50.0); MEAN CORPUSCULAR HEMOGLOBIN 32.8 pg (28.0-32.0); MEAN CORPUSCULAR VOLUME 97.7 fL (80.0-94.0); MEAN PLATELET VOLUME 9.3 fl (7.4-10.4); MONOCYTES % 10.6 % (2.0-8.0); NEUTROPHILS % 54.8 % (40.0-76.0); PLATELET 125 x1000/uL (130-400); RED BLOOD CELL COUNT 3.68 mill/uL (4.7-6.1); RED CELL DISTRIBUTION WIDTH 16.2 % (11.6-14.6)
[2020-01-09 07:09] LABS: CHLORIDE 107 mEq/L (98-107)
[2020-01-09] MEDS: INSULIN LISPRO 100 UNITS/ML SUBCUT SCH ×4 (07:40→20:32)
[2020-01-09 08:00] VITALS: BP 145/87
[2020-01-09] MEDS: APIXABAN 2.5 MG TABLET PO SCH ×2 (09:15→17:29)
[2020-01-09] MEDS: MIDODRINE HCL 2.5MG TABLET PO SCH ×3 (09:15→17:30)
[2020-01-09] MEDS: CARVEDILOL 3.125 MG TABLET PO SCH ×2 (09:15→20:27)
[2020-01-09] MEDS: ASPIRIN 81MG TABLET PO SCH (09:15)
[2020-01-09] MEDS: DOCUSATE SODIUM 250MG CAPSULE PO SCH (09:15)
[2020-01-09 20:00] VITALS: BP 95/65
[2020-01-09] MEDS: DOXAZOSIN MESYLATE 4MG TABLET PO SCH (20:27)
[2020-01-09] MEDS: ATORVASTATIN CALCIUM 10MG TABLET PO SCH (20:29)
[2020-01-10] MEDS: ACETAMINOPHEN 325MG TABLET PO PRN (02:16)
[2020-01-10] MEDS: BLOOD SUGAR DIAGNOSTIC STRIP TEST SCH ×4 (06:09→21:26)
[2020-01-10] MEDS: LEVOTHYROXINE SODIUM 100MCG TABLET PO SCH (06:09)
[2020-01-10] MEDS: INSULIN LISPRO 100 UNITS/ML SUBCUT SCH ×4 (06:13→21:00)
[2020-01-10 06:37] LABS: BASOPHILS % 1.8 % (0.0-2.0); HEMATOCRIT. 34.6 % (42.0-52.0); HEMOGLOBIN. 11.7 g/dL (14.0-18.0); LYMPHOCYTES % 26.5 % (20.0-50.0); MEAN CORPUSCULAR HEMOGLOBIN 32.8 pg (28.0-32.0); MEAN CORPUSCULAR VOLUME 97.4 fL (80.0-94.0); MEAN PLATELET VOLUME 9.3 fl (7.4-10.4); MONOCYTES % 11.3 % (2.0-8.0); NEUTROPHILS % 58.4 % (40.0-76.0); PLATELET 127 x1000/uL (130-400); RED BLOOD CELL COUNT 3.55 mill/uL (4.7-6.1); RED CELL DISTRIBUTION WIDTH 16.1 % (11.6-14.6)
[2020-01-10 08:00] VITALS: BP 133/82
[2020-01-10] MEDS: ASPIRIN 81MG TABLET PO SCH (10:00)
[2020-01-10] MEDS: DOCUSATE SODIUM 250MG CAPSULE PO SCH (10:00)
[2020-01-10] MEDS: MIDODRINE HCL 2.5MG TABLET PO SCH ×3 (10:00→16:54)
[2020-01-10] MEDS: APIXABAN 2.5 MG TABLET PO SCH ×2 (10:00→16:55)
[2020-01-10] MEDS: CARVEDILOL 3.125 MG TABLET PO SCH ×2 (10:00→21:25)
[2020-01-10 20:00] VITALS: BP 145/64
[2020-01-10] MEDS: ATORVASTATIN CALCIUM 10MG TABLET PO SCH (21:25)
[2020-01-10] MEDS: DOXAZOSIN MESYLATE 4MG TABLET PO SCH (21:26)
[2020-01-11] MEDS: INSULIN LISPRO 100 UNITS/ML SUBCUT SCH ×4 (06:25→21:00)
[2020-01-11] MEDS: LEVOTHYROXINE SODIUM 100MCG TABLET PO SCH (06:25)
[2020-01-11] MEDS: BLOOD SUGAR DIAGNOSTIC STRIP TEST SCH ×4 (06:25→21:00)
[2020-01-11 08:18] VITALS: BP 144/90
[2020-01-11 08:21] LABS: FOLIC ACID (FOLATE) SERUM > 20.00 ng/mL (>5.38); VITAMIN B12 SERUM > 2000.0 pg/mL (211-911)
[2020-01-11] MEDS: CARVEDILOL 3.125 MG TABLET PO SCH ×2 (08:34→22:03)
[2020-01-11] MEDS: ACETAMINOPHEN 325MG TABLET PO PRN (08:34)
[2020-01-11] MEDS: DOCUSATE SODIUM 250MG CAPSULE PO SCH (08:34)
[2020-01-11] MEDS: APIXABAN 2.5 MG TABLET PO SCH ×2 (08:34→17:23)
[2020-01-11] MEDS: ASPIRIN 81MG TABLET PO SCH (08:34)
[2020-01-11] MEDS: MIDODRINE HCL 2.5MG TABLET PO SCH (08:35)
[2020-01-11] MEDS: MIDODRINE HCL 5MG TABLET PO SCH ×2 (12:45→17:23)
[2020-01-11 20:00] VITALS: BP 137/69
[2020-01-11] MEDS: ATORVASTATIN CALCIUM 10MG TABLET PO SCH (22:01)
[2020-01-12] MEDS: BLOOD SUGAR DIAGNOSTIC STRIP TEST SCH ×4 (06:07→21:00)
[2020-01-12] MEDS: INSULIN LISPRO 100 UNITS/ML SUBCUT SCH ×4 (06:08→21:00)
[2020-01-12] MEDS: LEVOTHYROXINE SODIUM 100MCG TABLET PO SCH (06:09)
[2020-01-12 08:01] VITALS: BP 132/89
[2020-01-12] MEDS: DOCUSATE SODIUM 250MG CAPSULE PO SCH (08:58)
[2020-01-12] MEDS: ASPIRIN 81MG TABLET PO SCH (08:59)
[2020-01-12] MEDS: CARVEDILOL 3.125 MG TABLET PO SCH ×2 (08:59→21:59)
[2020-01-12] MEDS: MIDODRINE HCL 5MG TABLET PO SCH ×3 (08:59→17:42)
[2020-01-12] MEDS: APIXABAN 2.5 MG TABLET PO SCH ×2 (08:59→17:42)
[2020-01-12] MEDS: DOXAZOSIN MESYLATE 4MG TABLET PO SCH (09:00)
[2020-01-12] MEDS: LACTULOSE 20G/30ML UDC PO PRN (12:56)
[2020-01-12 15:30] VITALS: BP 118/70
[2020-01-12 20:00] VITALS: BP 133/80
[2020-01-12] MEDS: ATORVASTATIN CALCIUM 10MG TABLET PO SCH (21:58)
[2020-01-12 22:00] VITALS: BP 122/70
[2020-01-13] MEDS: LACTULOSE 20G/30ML UDC PO PRN (04:07)
[2020-01-13] MEDS: INSULIN LISPRO 100 UNITS/ML SUBCUT SCH ×4 (06:19→21:00)
[2020-01-13] MEDS: BLOOD SUGAR DIAGNOSTIC STRIP TEST SCH ×4 (06:19→21:12)
[2020-01-13] MEDS: LEVOTHYROXINE SODIUM 100MCG TABLET PO SCH (06:20)
[2020-01-13 07:03] LABS: BASOPHILS % 0.7 % (0.0-2.0); EOSINOPHILS % 1.6 % (0.0-5.0); HEMATOCRIT. 35.8 % (42.0-52.0); HEMOGLOBIN. 12.1 g/dL (14.0-18.0); MEAN CORPUSCULAR HEMOGLOBIN 32.8 pg (28.0-32.0); MEAN CORPUSCULAR VOLUME 97.1 fL (80.0-94.0); MEAN PLATELET VOLUME 9.6 fl (7.4-10.4); MONOCYTES % 11.3 % (2.0-8.0); NEUTROPHILS % 57.4 % (40.0-76.0); PLATELET 131 x1000/uL (130-400); RED BLOOD CELL COUNT 3.68 mill/uL (4.7-6.1)
[2020-01-13] MEDS: NA PHOS,M-B/NA PHOS,DI-BA ENEMA 118ML PR PRN (07:34)
[2020-01-13] MEDS: MIDODRINE HCL 5MG TABLET PO SCH ×3 (08:48→16:50)
[2020-01-13] MEDS: ASPIRIN 81MG TABLET PO SCH (08:48)
[2020-01-13] MEDS: DOCUSATE SODIUM 250MG CAPSULE PO SCH (08:48)
[2020-01-13] MEDS: APIXABAN 2.5 MG TABLET PO SCH ×2 (08:49→16:49)
[2020-01-13] MEDS: CARVEDILOL 3.125 MG TABLET PO SCH ×2 (08:49→21:12)
[2020-01-13 09:07] VITALS: BP 149/69
[2020-01-13 10:01] VITALS: BP 78/41
[2020-01-13 20:00] VITALS: BP 112/63
[2020-01-13] MEDS: ATORVASTATIN CALCIUM 10MG TABLET PO SCH (21:12)
[2020-01-14] MEDS: BLOOD SUGAR DIAGNOSTIC STRIP TEST SCH ×4 (05:56→21:24)
[2020-01-14] MEDS: LEVOTHYROXINE SODIUM 100MCG TABLET PO SCH (05:56)
[2020-01-14] MEDS: INSULIN LISPRO 100 UNITS/ML SUBCUT SCH ×4 (06:00→21:00)
[2020-01-14 06:09] LABS: 25-HYDROXY VITAMIN D3 22 ng/mL (.)
[2020-01-14 08:00] VITALS: BP 148/84
[2020-01-14] MEDS: APIXABAN 2.5 MG TABLET PO SCH ×2 (10:11→17:12)
[2020-01-14] MEDS: ASPIRIN 81MG TABLET PO SCH (10:11)
[2020-01-14] MEDS: MIDODRINE HCL 5MG TABLET PO SCH ×3 (10:11→17:12)
[2020-01-14] MEDS: DOCUSATE SODIUM 250MG CAPSULE PO SCH (10:11)
[2020-01-14] MEDS: DOXAZOSIN MESYLATE 4MG TABLET PO SCH (10:11)
[2020-01-14] MEDS: CARVEDILOL 3.125 MG TABLET PO SCH ×2 (10:12→21:23)
[2020-01-14] MEDS: FUROSEMIDE 40MG TABLET PO SCH (10:12)
[2020-01-14 13:00] VITALS: BP_SYST 116; BP_SYST 94; BP_DIAS 58; BP_DIAS 72
[2020-01-14] MEDS ORDERED: BISACODYL 10MG SUPP PR PRN (16:30)
[2020-01-14 20:02] VITALS: BP 120/77
[2020-01-14] MEDS: ATORVASTATIN CALCIUM 10MG TABLET PO SCH (21:54)
[2020-01-14] MEDS: LACTULOSE 20G/30ML UDC PO PRN (21:54)
[2020-01-15] MEDS: LEVOTHYROXINE SODIUM 100MCG TABLET PO SCH (06:44)
[2020-01-15 06:45] LABS: BASOPHILS % 0.6 % (0.0-2.0); EOSINOPHILS % 2.1 % (0.0-5.0); HEMATOCRIT. 33.8 % (42.0-52.0); HEMOGLOBIN. 11.1 g/dL (14.0-18.0); LYMPHOCYTES % 30.6 % (20.0-50.0); MEAN CORPUSCULAR HEMOGLOBIN 32.1 pg (28.0-32.0); MEAN CORPUSCULAR VOLUME 97.6 fL (80.0-94.0); MEAN PLATELET VOLUME 9.4 fl (7.4-10.4); MONOCYTES % 11.3 % (2.0-8.0); NEUTROPHILS % 55.4 % (40.0-76.0); PLATELET 130 x1000/uL (130-400); RED BLOOD CELL COUNT 3.46 mill/uL (4.7-6.1); RED CELL DISTRIBUTION WIDTH 16.3 % (11.6-14.6)
[2020-01-15] MEDS: BLOOD SUGAR DIAGNOSTIC STRIP TEST SCH ×4 (06:49→20:14)
[2020-01-15] MEDS: INSULIN LISPRO 100 UNITS/ML SUBCUT SCH ×4 (06:49→20:14)
[2020-01-15 08:00] VITALS: BP 140/73
[2020-01-15] MEDS: DOCUSATE SODIUM 250MG CAPSULE PO SCH (08:15)
[2020-01-15] MEDS: ASPIRIN 81MG TABLET PO SCH (08:15)
[2020-01-15] MEDS: CARVEDILOL 3.125 MG TABLET PO SCH ×2 (08:15→20:13)
[2020-01-15] MEDS: APIXABAN 2.5 MG TABLET PO SCH ×2 (08:15→17:01)
[2020-01-15] MEDS: MIDODRINE HCL 5MG TABLET PO SCH ×3 (08:16→17:00)
[2020-01-15] MEDS: ACETAMINOPHEN 325MG TABLET PO PRN (13:53)
[2020-01-15 17:30] VITALS: BP 115/61
[2020-01-15] MEDS: ERGOCALCIFEROL 50000UNITS CAPSULE PO SCH (18:10)
[2020-01-15 20:00] VITALS: BP 134/66
[2020-01-15] MEDS: ATORVASTATIN CALCIUM 10MG TABLET PO SCH (20:13)
[2020-01-16] MEDS: BLOOD SUGAR DIAGNOSTIC STRIP TEST SCH ×4 (05:49→21:22)
[2020-01-16] MEDS: INSULIN LISPRO 100 UNITS/ML SUBCUT SCH ×4 (05:50→21:00)
[2020-01-16] MEDS: LEVOTHYROXINE SODIUM 100MCG TABLET PO SCH (06:14)
[2020-01-16 06:42] LABS: HEMATOCRIT. 34.5 % (42.0-52.0); HEMOGLOBIN. 11.7 g/dL (14.0-18.0); MEAN CORPUSCULAR HEMOGLOBIN 32.8 pg (28.0-32.0); MEAN CORPUSCULAR VOLUME 97.1 fL (80.0-94.0); MEAN PLATELET VOLUME 9.4 fl (7.4-10.4); PLATELET 130 x1000/uL (130-400); RED BLOOD CELL COUNT 3.56 mill/uL (4.7-6.1); RED CELL DISTRIBUTION WIDTH 15.9 % (11.6-14.6)
[2020-01-16 07:30] VITALS: BP 143/86
[2020-01-16] MEDS: DOCUSATE SODIUM 250MG CAPSULE PO SCH (08:14)
[2020-01-16] MEDS: ASPIRIN 81MG TABLET PO SCH (08:15)
[2020-01-16] MEDS: MIDODRINE HCL 5MG TABLET PO SCH ×3 (08:15→16:23)
[2020-01-16] MEDS: DOXAZOSIN MESYLATE 4MG TABLET PO SCH (08:15)
[2020-01-16] MEDS: APIXABAN 2.5 MG TABLET PO SCH ×2 (08:15→16:23)
[2020-01-16] MEDS: CARVEDILOL 3.125 MG TABLET PO SCH ×2 (08:16→21:21)
[2020-01-16 12:01] VITALS: BP 123/71
[2020-01-16] MEDS: ACETAMINOPHEN 325MG TABLET PO PRN (18:11)
[2020-01-16 20:00] VITALS: BP 111/56
[2020-01-16] MEDS: ATORVASTATIN CALCIUM 10MG TABLET PO SCH (21:21)
[2020-01-16 23:08] LABS: PLATELET ESTIMATE NORMAL
[2020-01-17] MEDS: INSULIN LISPRO 100 UNITS/ML SUBCUT SCH ×4 (06:08→20:17)
[2020-01-17] MEDS: LEVOTHYROXINE SODIUM 100MCG TABLET PO SCH (06:08)
[2020-01-17] MEDS: BLOOD SUGAR DIAGNOSTIC STRIP TEST SCH ×4 (06:08→20:12)
[2020-01-17 08:22] VITALS: BP 144/75
[2020-01-17] MEDS: ASPIRIN 81MG TABLET PO SCH (09:27)
[2020-01-17] MEDS: APIXABAN 2.5 MG TABLET PO SCH ×2 (09:27→16:52)
[2020-01-17] MEDS: DOCUSATE SODIUM 250MG CAPSULE PO SCH (09:27)
[2020-01-17] MEDS: MIDODRINE HCL 5MG TABLET PO SCH ×3 (09:27→16:52)
[2020-01-17] MEDS: CARVEDILOL 3.125 MG TABLET PO SCH ×2 (09:35→20:12)
[2020-01-17 13:00] VITALS: BP_SYST 111; BP_SYST 125; BP_SYST 96; BP_DIAS 53; BP_DIAS 64; BP_DIAS 69
[2020-01-17 20:00] VITALS: BP 132/68
[2020-01-17] MEDS: ATORVASTATIN CALCIUM 10MG TABLET PO SCH (20:12)
[2020-01-17] MEDS: ACETAMINOPHEN 325MG TABLET PO PRN (20:12)
[2020-01-18] MEDS: LEVOTHYROXINE SODIUM 100MCG TABLET PO SCH (06:13)
[2020-01-18] MEDS: BLOOD SUGAR DIAGNOSTIC STRIP TEST SCH ×4 (06:13→21:29)
[2020-01-18] MEDS: INSULIN LISPRO 100 UNITS/ML SUBCUT SCH ×4 (06:18→22:31)
[2020-01-18 06:39] LABS: BASOPHILS % 0.5 % (0.0-2.0); EOSINOPHILS % 4.1 % (0.0-5.0); HEMATOCRIT. 34.9 % (42.0-52.0); HEMOGLOBIN. 11.6 g/dL (14.0-18.0); LYMPHOCYTES % 35.6 % (20.0-50.0); MEAN CORPUSCULAR HEMOGLOBIN 32.6 pg (28.0-32.0); MEAN CORPUSCULAR VOLUME 97.9 fL (80.0-94.0); MONOCYTES % 12.4 % (2.0-8.0); NEUTROPHILS % 47.4 % (40.0-76.0); PLATELET 129 x1000/uL (130-400); RED BLOOD CELL COUNT 3.57 mill/uL (4.7-6.1); RED CELL DISTRIBUTION WIDTH 16.1 % (11.6-14.6)
[2020-01-18 07:05] LABS: PHOSPHORUS 3.9 mg/dL (2.5-4.9)
[2020-01-18 08:22] VITALS: BP 154/82
[2020-01-18] MEDS: DOCUSATE SODIUM 250MG CAPSULE PO SCH (08:26)
[2020-01-18] MEDS: CARVEDILOL 3.125 MG TABLET PO SCH ×2 (08:26→21:29)
[2020-01-18] MEDS: MIDODRINE HCL 5MG TABLET PO SCH (08:26)
[2020-01-18] MEDS: ASPIRIN 81MG TABLET PO SCH (08:26)
[2020-01-18] MEDS: FUROSEMIDE 40MG TABLET PO SCH (08:26)
[2020-01-18] MEDS: DOXAZOSIN MESYLATE 4MG TABLET PO SCH (08:26)
[2020-01-18] MEDS: APIXABAN 2.5 MG TABLET PO SCH ×2 (08:27→16:40)
[2020-01-18 12:00] VITALS: BP_SYST 116; BP_SYST 87; BP_SYST 94; BP_DIAS 49; BP_DIAS 56; BP_DIAS 59
[2020-01-18] MEDS: MIDODRINE HCL 2.5MG TABLET PO SCH ×2 (12:46→16:41)
[2020-01-18 14:05] VITALS: BP 111/70
[2020-01-18] MEDS: NA PHOS,M-B/NA PHOS,DI-BA ENEMA 118ML PR PRN (16:44)
[2020-01-18] MEDS: ACETAMINOPHEN 325MG TABLET PO PRN (17:31)
[2020-01-18 20:00] VITALS: BP 140/73
[2020-01-18] MEDS ORDERED: HYDROCODONE/ACETAMINOPHEN 5/325MG TABLET PO NR (20:00)
[2020-01-18] MEDS: ATORVASTATIN CALCIUM 10MG TABLET PO SCH (21:26)
[2020-01-19] MEDS: INSULIN LISPRO 100 UNITS/ML SUBCUT SCH ×4 (05:50→21:00)
[2020-01-19] MEDS: BLOOD SUGAR DIAGNOSTIC STRIP TEST SCH ×4 (05:50→21:57)
[2020-01-19] MEDS: LEVOTHYROXINE SODIUM 100MCG TABLET PO SCH (06:07)
[2020-01-19] MEDS: ACETAMINOPHEN 325MG TABLET PO PRN (06:28)
[2020-01-19 08:10] VITALS: BP 140/79
[2020-01-19] MEDS: ASPIRIN 81MG TABLET PO SCH (08:39)
[2020-01-19] MEDS: DOCUSATE SODIUM 250MG CAPSULE PO SCH (08:39)
[2020-01-19] MEDS: MIDODRINE HCL 2.5MG TABLET PO SCH ×3 (08:40→16:47)
[2020-01-19] MEDS: CARVEDILOL 3.125 MG TABLET PO SCH ×2 (08:40→21:50)
[2020-01-19] MEDS: APIXABAN 2.5 MG TABLET PO SCH ×2 (08:40→16:47)
[2020-01-19 20:00] VITALS: BP 137/68
[2020-01-19] MEDS: ATORVASTATIN CALCIUM 10MG TABLET PO SCH (21:49)
[2020-01-20] MEDS: ACETAMINOPHEN 325MG TABLET PO PRN ×2 (02:13→20:05)
[2020-01-20] MEDS: INSULIN LISPRO 100 UNITS/ML SUBCUT SCH ×4 (05:43→21:00)
[2020-01-20] MEDS: BLOOD SUGAR DIAGNOSTIC STRIP TEST SCH ×4 (05:43→21:42)
[2020-01-20] MEDS: LEVOTHYROXINE SODIUM 100MCG TABLET PO SCH (06:02)
[2020-01-20 06:27] LABS: EOSINOPHILS % 2.6 % (0.0-5.0); HEMATOCRIT. 34.1 % (42.0-52.0); HEMOGLOBIN. 11.3 g/dL (14.0-18.0); LYMPHOCYTES % 27.3 % (20.0-50.0); MEAN CORPUSCULAR HEMOGLOBIN 32.1 pg (28.0-32.0); MEAN CORPUSCULAR VOLUME 96.5 fL (80.0-94.0); MONOCYTES % 13.6 % (2.0-8.0); NEUTROPHILS % 55.5 % (40.0-76.0); PLATELET 138 x1000/uL (130-400); RED BLOOD CELL COUNT 3.53 mill/uL (4.7-6.1); RED CELL DISTRIBUTION WIDTH 15.8 % (11.6-14.6)
[2020-01-20 08:25] VITALS: BP 114/78
[2020-01-20] MEDS: DOXAZOSIN MESYLATE 4MG TABLET PO SCH ×2 (08:41→08:45)
[2020-01-20] MEDS: MIDODRINE HCL 2.5MG TABLET PO SCH ×4 (08:41→17:12)
[2020-01-20] MEDS: APIXABAN 2.5 MG TABLET PO SCH ×2 (08:41→17:12)
[2020-01-20] MEDS: CARVEDILOL 3.125 MG TABLET PO SCH ×3 (08:42→21:37)
[2020-01-20] MEDS: ASPIRIN 81MG TABLET PO SCH (08:42)
[2020-01-20] MEDS: DOCUSATE SODIUM 250MG CAPSULE PO SCH (08:42)
[2020-01-20 13:16] VITALS: BP_SYST 87; BP_SYST 94; BP_SYST 96; BP_DIAS 51; BP_DIAS 58; BP_DIAS 63
[2020-01-20 13:26] VITALS: BP 106/70
[2020-01-20 20:00] VITALS: BP 129/78
[2020-01-20] MEDS: ATORVASTATIN CALCIUM 10MG TABLET PO SCH (21:36)
[2020-01-21] MEDS: LEVOTHYROXINE SODIUM 100MCG TABLET PO SCH (06:36)
[2020-01-21] MEDS: INSULIN LISPRO 100 UNITS/ML SUBCUT SCH ×4 (06:37→20:53)
[2020-01-21] MEDS: BLOOD SUGAR DIAGNOSTIC STRIP TEST SCH ×4 (06:37→20:46)
[2020-01-21] MEDS: FUROSEMIDE 40MG TABLET PO SCH (08:11)
[2020-01-21] MEDS: ASPIRIN 81MG TABLET PO SCH (08:11)
[2020-01-21] MEDS: APIXABAN 2.5 MG TABLET PO SCH ×2 (08:11→16:37)
[2020-01-21] MEDS: DOCUSATE SODIUM 250MG CAPSULE PO SCH (08:11)
[2020-01-21] MEDS: CARVEDILOL 3.125 MG TABLET PO SCH ×2 (08:12→20:45)
[2020-01-21] MEDS: MIDODRINE HCL 2.5MG TABLET PO SCH (08:12)
[2020-01-21 08:33] VITALS: BP 142/97
[2020-01-21 13:15] VITALS: BP 101/57
[2020-01-21] MEDS: MIDODRINE HCL 5MG TABLET PO SCH ×2 (13:21→16:37)
[2020-01-21 15:05] VITALS: BP 128/86
[2020-01-21] MEDS: BISACODYL 5MG TABLET PO PRN (16:37)
[2020-01-21 20:00] VITALS: BP 115/79
[2020-01-21] MEDS: LACTULOSE 20G/30ML UDC PO PRN (20:45)
[2020-01-21] MEDS: ATORVASTATIN CALCIUM 10MG TABLET PO SCH (20:45)
[2020-01-21 23:04] VITALS: BP 115/79
[2020-01-22] MEDS: MIDODRINE HCL 5MG TABLET PO SCH ×3 (04:55→13:59)
[2020-01-22] MEDS: NA PHOS,M-B/NA PHOS,DI-BA ENEMA 118ML PR PRN (05:01)
[2020-01-22] MEDS: LEVOTHYROXINE SODIUM 100MCG TABLET PO SCH (06:21)
[2020-01-22] MEDS: BLOOD SUGAR DIAGNOSTIC STRIP TEST SCH ×4 (06:21→21:28)
[2020-01-22] MEDS: INSULIN LISPRO 100 UNITS/ML SUBCUT SCH ×4 (06:29→21:00)
[2020-01-22 08:20] VITALS: BP 154/93
[2020-01-22] MEDS: ERGOCALCIFEROL 50000UNITS CAPSULE PO SCH (09:53)
[2020-01-22] MEDS: ASPIRIN 81MG TABLET PO SCH (09:53)
[2020-01-22] MEDS: APIXABAN 2.5 MG TABLET PO SCH ×2 (09:53→17:09)
[2020-01-22] MEDS: DOCUSATE SODIUM 250MG CAPSULE PO SCH (09:53)
[2020-01-22] MEDS: DOXAZOSIN MESYLATE 4MG TABLET PO SCH (09:54)
[2020-01-22] MEDS: CARVEDILOL 3.125 MG TABLET PO SCH ×2 (09:55→21:28)
[2020-01-22 20:00] VITALS: BP 107/67
[2020-01-22] MEDS: ATORVASTATIN CALCIUM 10MG TABLET PO SCH (21:28)
[2020-01-23 06:06] LABS: CHLORIDE 107 mEq/L (98-107)
[2020-01-23] MEDS: LEVOTHYROXINE SODIUM 100MCG TABLET PO SCH (06:06)
[2020-01-23] MEDS: BLOOD SUGAR DIAGNOSTIC STRIP TEST SCH ×4 (06:06→21:33)
[2020-01-23] MEDS: MIDODRINE HCL 5MG TABLET PO SCH ×3 (06:06→12:18)
[2020-01-23 06:16] LABS: PHOSPHORUS 5.5 mg/dL (2.5-4.9)
[2020-01-23 06:19] LABS: EOSINOPHILS % 2.5 % (0.0-5.0); HEMOGLOBIN. 11.1 g/dL (14.0-18.0); LYMPHOCYTES % 32.1 % (20.0-50.0); MEAN CORPUSCULAR HEMOGLOBIN 32.5 pg (28.0-32.0); MEAN CORPUSCULAR VOLUME 96.8 fL (80.0-94.0); MEAN PLATELET VOLUME 9.3 fl (7.4-10.4); MONOCYTES % 14.2 % (2.0-8.0); NEUTROPHILS % 50.2 % (40.0-76.0); PLATELET 133 x1000/uL (130-400); RED BLOOD CELL COUNT 3.41 mill/uL (4.7-6.1); RED CELL DISTRIBUTION WIDTH 15.9 % (11.6-14.6)
[2020-01-23] MEDS: INSULIN LISPRO 100 UNITS/ML SUBCUT SCH ×4 (09:00→21:00)
[2020-01-23] MEDS: ASPIRIN 81MG TABLET PO SCH (09:22)
[2020-01-23] MEDS: CARVEDILOL 3.125 MG TABLET PO SCH ×2 (09:22→21:30)
[2020-01-23] MEDS: APIXABAN 2.5 MG TABLET PO SCH ×2 (09:22→16:50)
[2020-01-23] MEDS: DOCUSATE SODIUM 250MG CAPSULE PO SCH (09:22)
[2020-01-23 10:04] VITALS: BP 113/60
[2020-01-23 20:00] VITALS: BP 130/64
[2020-01-23] MEDS: ATORVASTATIN CALCIUM 10MG TABLET PO SCH (21:30)
[2020-01-24] MEDS: MIDODRINE HCL 5MG TABLET PO SCH ×3 (05:18→12:16)
[2020-01-24] MEDS: BLOOD SUGAR DIAGNOSTIC STRIP TEST SCH ×4 (05:29→21:24)
[2020-01-24] MEDS: LEVOTHYROXINE SODIUM 100MCG TABLET PO SCH (06:56)
[2020-01-24 07:24] VITALS: BP 128/66
[2020-01-24] MEDS: DOXAZOSIN MESYLATE 4MG TABLET PO SCH (08:34)
[2020-01-24] MEDS: ASPIRIN 81MG TABLET PO SCH (08:34)
[2020-01-24] MEDS: CARVEDILOL 3.125 MG TABLET PO SCH ×2 (08:34→21:23)
[2020-01-24] MEDS: APIXABAN 2.5 MG TABLET PO SCH ×2 (08:34→16:43)
[2020-01-24] MEDS: DOCUSATE SODIUM 250MG CAPSULE PO SCH (08:34)
[2020-01-24] MEDS: INSULIN LISPRO 100 UNITS/ML SUBCUT SCH ×4 (08:35→21:00)
[2020-01-24] MEDS: BISACODYL 5MG TABLET PO PRN (17:19)
[2020-01-24 20:00] VITALS: BP 129/67
[2020-01-24] MEDS: ATORVASTATIN CALCIUM 10MG TABLET PO SCH (21:23)
[2020-01-25 05:43] LABS: HEMATOCRIT. 32.3 % (42.0-52.0); HEMOGLOBIN. 10.9 g/dL (14.0-18.0); MEAN CORPUSCULAR HEMOGLOBIN 32.6 pg (28.0-32.0); MEAN CORPUSCULAR VOLUME 96.7 fL (80.0-94.0); MEAN PLATELET VOLUME 9.3 fl (7.4-10.4); PLATELET 136 x1000/uL (130-400); RED BLOOD CELL COUNT 3.34 mill/uL (4.7-6.1); RED CELL DISTRIBUTION WIDTH 15.8 % (11.6-14.6)
[2020-01-25] MEDS: LEVOTHYROXINE SODIUM 100MCG TABLET PO SCH (06:16)
[2020-01-25] MEDS: BLOOD SUGAR DIAGNOSTIC STRIP TEST SCH ×4 (06:16→21:38)
[2020-01-25] MEDS: MIDODRINE HCL 5MG TABLET PO SCH ×3 (06:16→13:25)
[2020-01-25] MEDS: INSULIN LISPRO 100 UNITS/ML SUBCUT SCH ×4 (06:21→21:00)
[2020-01-25 06:22] LABS: PHOSPHORUS 4.5 mg/dL (2.5-4.9)
[2020-01-25] MEDS: ACETAMINOPHEN 325MG TABLET PO PRN ×2 (06:23→17:15)
[2020-01-25 08:20] VITALS: BP 128/73
[2020-01-25] MEDS: APIXABAN 2.5 MG TABLET PO SCH ×2 (08:29→17:15)
[2020-01-25] MEDS: ASPIRIN 81MG TABLET PO SCH (08:29)
[2020-01-25] MEDS: DOCUSATE SODIUM 250MG CAPSULE PO SCH (08:29)
[2020-01-25] MEDS: CARVEDILOL 3.125 MG TABLET PO SCH ×2 (08:30→21:00)
[2020-01-25 17:24] LABS: PLATELET ESTIMATE NORMAL
[2020-01-25 20:00] VITALS: BP 127/87
[2020-01-25] MEDS: ATORVASTATIN CALCIUM 10MG TABLET PO SCH (21:39)
[2020-01-26] MEDS: MIDODRINE HCL 5MG TABLET PO SCH ×2 (05:00→08:36)
[2020-01-26] MEDS: ACETAMINOPHEN 325MG TABLET PO PRN (05:55)
[2020-01-26] MEDS: BLOOD SUGAR DIAGNOSTIC STRIP TEST SCH (06:07)
[2020-01-26] MEDS: LEVOTHYROXINE SODIUM 100MCG TABLET PO SCH (06:08)
[2020-01-26 08:20] VITALS: BP 162/86
[2020-01-26] MEDS: DOXAZOSIN MESYLATE 4MG TABLET PO SCH (08:37)
[2020-01-26] MEDS: CARVEDILOL 3.125 MG TABLET PO SCH (08:37)
[2020-01-26] MEDS: ASPIRIN 81MG TABLET PO SCH (08:37)
[2020-01-26] MEDS: APIXABAN 2.5 MG TABLET PO SCH (08:38)
[2020-01-26] MEDS: INSULIN LISPRO 100 UNITS/ML SUBCUT SCH (08:38)
[2020-01-26] MEDS: DOCUSATE SODIUM 250MG CAPSULE PO SCH (08:38)
[2020-01-26 10:56] VITALS: BP 132/76
== END 2020-01-26 11:11 | disposition home health service (06) | DRG 291 ==
PROVIDERS: ADMIT Physical Medicine & Rehabilitation Spinal Cord Injury Medicine; ATTEND Internal Medicine
DX: I13.0 Hypertensive heart and chronic kidney disease with heart failure and stage 1 through stage 4 chronic kidney disease, or unspecified chronic kidney disease (principal); I50.43 Acute on chronic combined systolic (congestive) and diastolic (congestive) heart failure; J96.20 Acute and chronic respiratory failure, unspecified whether with hypoxia or hypercapnia; E46 Unspecified protein-calorie malnutrition; D61.818 Other pancytopenia; I48.20 Chronic atrial fibrillation, unspecified; I48.92 Unspecified atrial flutter; N17.9 Acute kidney failure, unspecified; Z68.30 Body mass index [BMI] 30.0-30.9, adult; E78.5 Hyperlipidemia, unspecified; I08.0 Rheumatic disorders of both mitral and aortic valves; I25.10 Atherosclerotic heart disease of native coronary artery without angina pectoris; I25.2 Old myocardial infarction; N18.3 Chronic kidney disease, stage 3 (moderate); D53.9 Nutritional anemia, unspecified; D63.1 Anemia in chronic kidney disease; D72.821 Monocytosis (symptomatic); E03.9 Hypothyroidism, unspecified; E11.22 Type 2 diabetes mellitus with diabetic chronic kidney disease; E11.42 Type 2 diabetes mellitus with diabetic polyneuropathy; I43 Cardiomyopathy in diseases classified elsewhere; I48.0 Paroxysmal atrial fibrillation; I70.0 Atherosclerosis of aorta; I95.1 Orthostatic hypotension; K59.00 Constipation, unspecified; N40.0 Benign prostatic hyperplasia without lower urinary tract symptoms; E55.9 Vitamin D deficiency, unspecified; R53.81 Other malaise; R26.9 Unspecified abnormalities of gait and mobility; M10.9 Gout, unspecified; Z79.01 Long term (current) use of anticoagulants; Z79.84 Long term (current) use of oral hypoglycemic drugs; Z86.73 Personal history of transient ischemic attack (TIA), and cerebral infarction without residual deficits; Z90.49 Acquired absence of other specified parts of digestive tract; Z79.899 Other long term (current) drug therapy
CPT/HCPCS: 36415; 70551; 80048; 80053; 82306; 82607; 82746; 82962; 83036; 83735; 84100; 84134; 84443; 84484; 85025; 93005; 93970; 97110; 97112; 97116; 97162; 97166; 97530; 97535; 97542; J1815

== ENCOUNTER 2020-08-08 16:19 | Emergency (ER) | payer MEDICARE, OTHER ==
[~2020-08-08] VITALS: Ht 177.8 cm; Wt 104.0 kg
[~2020-08-08 16:19] MED LIST changes: -AMOX-494 MT
[2020-08-08] MEDS ORDERED: SODIUM CHLORIDE 0.9% 1,000 ML IV ONE (18:00)
[2020-08-08 18:47] LABS: BASOPHILS % 0.5 % (0.0-2.0); EOSINOPHILS % 3.2 % (0.0-5.0); HEMATOCRIT. 26.4 % (42.0-52.0); HEMOGLOBIN. 8.8 g/dL (14.0-18.0); LYMPHOCYTES % 19.7 % (20.0-50.0); MEAN CORPUSCULAR HEMOGLOBIN 34.4 pg (28.0-32.0); MEAN CORPUSCULAR VOLUME 102.8 fL (80.0-94.0); MEAN PLATELET VOLUME 9.4 fl (7.4-10.4); MONOCYTES % 9.4 % (2.0-8.0); NEUTROPHILS % 67.2 % (40.0-76.0); PLATELET 140 x1000/uL (130-400); RED BLOOD CELL COUNT 2.56 mill/uL (4.7-6.1)
[2020-08-08 18:55] LABS: CHLORIDE 112 mEq/L (98-107)
[2020-08-08 20:25] VITALS: BP 148/84
== END 2020-08-08 21:35 | disposition home or self-care (01) ==
LOC: ER 16:19
DX: R53.1 Weakness (principal); N19 Unspecified kidney failure; D53.9 Nutritional anemia, unspecified; I10 Essential (primary) hypertension; E11.9 Type 2 diabetes mellitus without complications; I25.10 Atherosclerotic heart disease of native coronary artery without angina pectoris; Z91.81 History of falling; I25.2 Old myocardial infarction
CPT/HCPCS: 36415; 80053; 85025; 93005; 96360; 99284; J7030